=== PATIENT | male | born 1975 ===

== ENCOUNTER 2021-04-20 01:46 | Emergency (ER) | payer MEDICAID, SELFPAY ==
--- NOTE | 2021-04-20 | ECG_ITS ---
Test Reason : DIZZY CHEST PRESSURE Blood Pressure : / mmHG Vent. Rate : 083 BPM Atrial Rate : 083 BPM P-R Int : 130 ms QRS Dur : 084 ms QT Int : 374 ms P-R-T Axes : 065 048 022 degrees QTc Int : 439 ms Normal sinus rhythm Normal ECG When compared to the previous EKG of No significant changes seen Referred By: Generic ED Physician Electronically Signed By:MANUEL PUGH MD
[2021-04-20 01:52] VITALS: BP 149/91; PULSE 86; RESP 18; TEMP 36.8; O2SAT 100; BMI 24.3
[2021-04-20 02:12] LABS: Glucose, Whole Blood 177 mg/dL (60-115)
[2021-04-20 02:41] LABS: MANUAL DIFF FLAG NO
[2021-04-20 02:42] LABS: Basophils Percent Auto 0.5 % (0-2); Eosinophils Absolute Auto 0.2 X10*3/uL (0.0-0.4); Hematocrit 39.9 % (42-52); Hemoglobin 13.2 g/dl (14.0-18.0); Imm Gran Abs Auto 0.02 X10*3/uL (0.00-0.03); Imm Gran Pct Auto 0.3 % (0.0-0.4); Lymphocytes Absolute Auto 1.9 X10*3/uL (1.2-4.9); Lymphocytes Percent Auto 25.7 % (20-40); Mean Corpuscular HGB Conc 33.1 g/dl (31.0-36.0); Mean Corpuscular Hemoglobin 29.6 pg (27.0-33.0); Mean Corpuscular Volume 89.5 fL (80-98); Mean Platelet Volume 11.2 fL (9.4-12.4); Monocytes Absolute Auto 0.7 X10*3/uL (0.1-1.2); Monocytes Percent Auto 8.8 % (2-11); Neutrophils Absolute Auto 4.6 X10*3/uL (2.0-8.3); Neutrophils Percent Auto 62.7 % (45-73); Platelet Count 208 X10*3/uL (160-400); Red Blood Count 4.46 X10*6/uL (4.60-5.80); Red Cell Distribution Width 13.2 % (11.0-16.0); White Blood Count 7.4 X10*3/uL (4.8-10.8)
[2021-04-20 02:45] LABS: Glucose Urine UA NEG (NEG); Leukocyte Esterase Urine NEG (NEG); Nitrite Urine NEG (NEG); Specific Gravity - Urine 1.025 (1.005-1.025); Urine Blood TRACE (NEG); Urine Ketones NEG (NEG); Urine Protein 2+ MG/DL (NEG-TRACE)
[2021-04-20 02:46] LABS: Appearance Urine CLEAR; Color Urine YELLOW
[2021-04-20 02:51] LABS: Mucus Urine 1+ /LPF; Squamous Epithelial Cell Urine 2+ /LPF; WBC Urine 0-2 /HPF (0-4)
[2021-04-20 03:09] LABS: Alanine Aminotransferase 16 U/L (0-40); Albumin Level 4.6 g/dL (3.5-5.0); Alkaline Phosphatase 90 U/L (39-117); Anion Gap 15 (12-20); Aspartate Amino Transferase 17 U/L (5-37); Bilirubin Total 0.4 mg/dL (0.0-1.0); Blood Urea Nitrogen 19 mg/dL (9-16); Calcium 9.5 mg/dL (8.4-10.2); Carbon Dioxide 26 mmol/L (22-29); Chloride 106 mmol/L (96-108); Creatinine Clr Calc Pharmacy 59.9; Estimated Glomerular Filt Rate 47; Glucose Random 154 mg/dL (60-115); Potassium 4.3 mmol/L (3.3-5.1); Sodium 143 mmol/L (135-145); Total Protein 7.6 g/dL (6.5-8.0)
== END 2021-04-20 04:44 | disposition left against medical advice (07) ==
PROVIDERS: Emergency Provider Emergency Medicine; PCP Internal Medicine Geriatric Medicine
DX: R42 Dizziness and giddiness (principal); E11.9 Type 2 diabetes mellitus without complications
CPT/HCPCS: 36415; 80053; 81001; 82947; 84484; 85025; 93005; 99283

== ENCOUNTER 2021-12-11 08:57 | Outpatient (REF) | payer MEDICAID, SELFPAY ==
--- NOTE | ~2021-12-11 | XR_ITS ---
EXAMINATION: PRE-MRI SCREENING CLINICAL INFORMATION: PRE-MRI SCREENING COMPARISON: None TECHNIQUE: AP view of the pelvis FINDINGS: No foreign body is seen. Bones of the pelvis are normal. There is mild arthritis at the hip joints with small osteophytes. Soft tissues are unremarkable. XR/XR pre mri screening IMPRESSION: No foreign body seen.
--- NOTE | ~2021-12-11 | MR_ITS ---
EXAMINATION: MRI FOOT WITHOUT AND WITH CONTRAST, RIGHT CLINICAL INFORMATION: Nonhealing wound at the 5th metatarsal. Pain. COMPARISON: None. TECHNIQUE: Multisequence MR imaging of the right foot was obtained before and after the IV administration of 80 mL Gadavist contrast on a high-field strength scanner. FINDINGS: BONE AND ARTICULAR CARTILAGE: There is prominent metallic artifact related to postsurgical change in the region of the cuboid and which is not well visualized. Findings could indicate prior resection or hardware. Correlation with plain radiographs could help further evaluate. Irregularity of the anterior calcaneal process with mild marrow edema which could represent the postsurgical result. Correlation with surgical history is recommended. No additional evidence of acute osseous injury. No postcontrast marrow enhancement. Mild osteophyte arthritis at the talonavicular, posterior subtalar, and tarsometatarsal joints. No concerning lytic or blastic osseous lesion. ACHILLES TENDON: Unremarkable. OTHER TENDONS: Intact. LIGAMENTS: The anterior and posterior talofibular ligaments appear attenuated which could represent remote sprain/partial tears. JOINT FLUID AND SOFT TISSUES: Soft tissue ulceration laterally with associated postsurgical change in the underlying osseous structures. There is no associated soft tissue mass or fluid collection/abscess formation. There is no significant soft tissue postcontrast enhancement. No significant joint effusion. PLANTAR FASCIA: Normal. SINUS TARSI AND TARSAL TUNNEL: Normal. MR/MR foot RT wo/w con IMPRESSION: 1. Soft tissue ulceration/postsurgical change at the lateral aspect of the midfoot with underlying metallic artifact in the region of the cuboid. Metallic artifact largely obscures the immediately adjacent osseous and soft tissue structures. No soft tissue mass or abscess formation. No adjacent marrow enhancement to suggest acute osteomyelitis. 2. Irregularity of the anterior process of the calcaneus without significant marrow enhancement or evidence of acute osseous myelitis. Findings likely represent postsurgical in correlation with surgical history is recommended. 3. 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 No concerning lytic or blastic osseous lesion.
[2021-12-11 09:25] LABS: MANUAL DIFF FLAG NO
[2021-12-11 09:27] LABS: Basophils Absolute Auto 0.1 X10*3/uL (0.0-0.2); Basophils Percent Auto 0.9 % (0-2); Eosinophils Absolute Auto 0.5 X10*3/uL (0.0-0.4); Eosinophils Percent Auto 7.1 % (0-4); Hematocrit 37.4 % (42.0-52.0); Imm Gran Abs Auto 0.02 X10*3/uL (0.00-0.03); Imm Gran Pct Auto 0.3 % (0.0-0.4); Lymphocytes Absolute Auto 2.1 X10*3/uL (1.2-4.9); Lymphocytes Percent Auto 29.9 % (20-40); Mean Corpuscular HGB Conc 32.1 g/dl (31.0-36.0); Mean Corpuscular Hemoglobin 29.3 pg (27.0-33.0); Mean Corpuscular Volume 91.2 fL (80.0-98.0); Mean Platelet Volume 10.6 fL (9.4-12.4); Monocytes Absolute Auto 0.5 X10*3/uL (0.1-1.2); Monocytes Percent Auto 6.7 % (2-11); Neutrophils Absolute Auto 3.9 x10*3/uL (2.0-8.3); Neutrophils Percent Auto 55.1 % (45-73); Platelet Count 219 X10*3/uL (160-400); Red Cell Distribution Width 13.2 % (11.0-16.0)
[2021-12-11 09:44] LABS: Alanine Aminotransferase 27 U/L (0-40); Albumin Level 4.1 g/dL (3.5-5.0); Alkaline Phosphatase 90 U/L (39-117); Anion Gap 12 (12-20); Aspartate Amino Transferase 21 U/L (5-37); Bilirubin Total 0.3 mg/dL (0.0-1.0); Blood Urea Nitrogen 17 mg/dL (9-16); C Reactive Protein 0.38 mg/dL (< or = 0.50); Calcium 9.5 mg/dL (8.4-10.2); Carbon Dioxide 28 mmol/L (22-29); Chloride 107 mmol/L (96-108); Estimated Glomerular Filt Rate 56; Glucose Random 163 mg/dL (60-115); Potassium 5.6 mmol/L (3.3-5.1); Sodium 141 mmol/L (135-145); Total Protein 7.1 g/dL (6.5-8.0)
== END 2021-12-11 08:58 | disposition home or self-care (01) ==
LOC: HO.MRI 08:57
PROVIDERS: Visit Provider Internal Medicine Geriatric Medicine
DX: M79.671 Pain in right foot (principal); Z87.39 Personal history of other diseases of the musculoskeletal system and connective tissue
CPT/HCPCS: 36415; 73720; 80053; 85025; 86140; A9585

== ENCOUNTER 2022-12-28 05:24 | Emergency (ER) | payer MEDICAID, SELFPAY ==
--- NOTE | ~2022-12-28 | XR_ITS ---
EXAMINATION: XR CHEST CLINICAL INFORMATION: Anxiety COMPARISON: 11/24/2015 TECHNIQUE: Frontal view of the chest was obtained. FINDINGS: Cardiac silhouette is within normal limits. No focal consolidation, pleural effusion, or pneumothorax. Sclerosis and small marginal osseous excrescences noted along the lateral margin of the right scapula. Multilevel degenerative changes of the thoracic spine. No acute osseous abnormality. XR/XR chest 1V IMPRESSION: No acute cardiopulmonary process. Other findings as above.
[2022-12-28 05:33] VITALS: BP 141/68; PULSE 84; RESP 18; TEMP 36.7; O2SAT 100; BMI 24.3
[2022-12-28 05:50] LABS: Glucose, Whole Blood 192 mg/dL (60-115)
--- OUTSIDE RECORDS SUMMARY | 2022-12-28 05:51 | XMS_ITS | Continuity of Care Document ---
Author Name Unknown Organization [facility] ter Address [address] [place] [id number]- Care Team Providers Care Agile Scrum Master Name Role Phone Name Noe FLORES Primary Care Physician [phone] [id number] Date(s): 09/22/20 - 09/23/[address] [address]- Encounter Diagnosis Multiple open wounds of foot(Discharge Diagnosis) - 09/23/20 Discharge Disposition: A-Transfer VNA/Home Health Attending Physician: Trisha Flores MD Admitting Physician: Trisha Flores MD Referring Physician: Trisha Flores MD Allergies, Adverse Reactions, Alerts Substance Reaction Severity Status NKA Active Immunizations Not Given Vaccine Date Status Refusal Reason pneumococcal 23-valent vaccine 07/25/20 Not Given Patient Refuses influenza virus vaccine, inactivated 07/25/20 Not Given Patient Refuses Medications aspirin 325 mg oral delayed release tablet 325 mg, 1, tablet, By Mouth, Daily, # 30 tablet, Refills 0, Tot. Refills 0, Maintenance, 09/03/20 10:01:00 EST, Route to Pharmacy Electronically, [facility], Partial fill upon patient request if the prescription is for a schedule II opio... Start Date: 09/03/20 Stop Date: 10/03/20 Status: Ordered Docusate Sodium Capsule 100 mg, 1, capsule, By Mouth, 2 times a day, Refills 0, Maintenance, 07/27/20 11:08:00 EDT Start Date: 07/27/20 Status: Ordered Dressing Supplies See Instructions, # 10 each, Refills 2, Tot. Refills 2, Maintenance, ACTICOAT flex 7, 09/23/20 10:40:00 EST, Supply Start Date: 09/23/20 Status: Ordered ferrous sulfate 325 mg oral enteric coated tablet 325 mg, By Mouth, Daily, # 30 tablet, Refills 0, Tot. Refills 0, Maintenance, 09/03/20 9:56:00 EST,Route to Pharmacy Electronically, [facility], Partial fill upon patient request if the prescription is for a schedule II opioid drug., 18... Start Date: 09/03/20 Stop Date: 10/03/20 Status: Ordered gabapentin 100 mg oral capsule 300 mg, 3, capsule, By Mouth, 3 times a day, # 63 capsule, Refills 0, Tot. Refills 0, Maintenance, 09/03/20 9:55:00 EST, Route to Pharmacy Electronically, [facility], Partial fill upon patient request if the prescription is for a schedul... Start Date: 09/03/20 Stop Date: 09/10/20 Status: Ordered gabapentin 300 mg oral capsule 300 mg, Capsule, By Mouth, 09/23/20 9:00:00 EST Start Date: 09/23/20 Stop Date: 09/23/20 Status: Completed Gauze Pad (4 X 4) See Instructions, # 25 each, Refills 2, Tot. Refills 2, Maintenance, Apply over acticoat flex 7, 09/23/20 10:44:00 EST, Supply Start Date: 09/23/20 Status: Ordered Gauze Roll (4 ) See Instructions, # 10 each, Refills 2, Tot. Refills 2, Maintenance, 4 in kerlix rolls, 09/23/20 10:44:00 EST, Supply Start Date: 09/23/20 Status: Ordered Metformin By Mouth, family unsure of dose, 0 Refills, Maintenance, 07/24/20 19:57:00 EDT Start Date: 07/24/20 Status: Ordered MOM Liquid 30 mL, By Mouth, Daily, PRN Constipation, 0 Refills, Maintenance, 07/27/20 11:08:00 EDT, Suspension Start Date: 07/27/20 Status: Ordered oxyCODONE 5 mg oral tablet 5 mg, Tablet, By Mouth, Every 4 hours, PRN for Pain , Moderate, Routine, 09/22/20 18:01:00 EST Start Date: 09/22/20 Stop Date: 09/23/20 Status: Discontinued oxyCODONE 5 mg oral tablet 5 mg, 1, tablet, By Mouth, Every 4 hours, PRN, Refills 0, Tot. Refills 0, Maintenance, Pain , Moderate, 09/23/20 11:07:00 EST, Partial fill upon patient request if the prescription is for a schedule II opioid drug. Start Date: 09/23/20 Status: Ordered Primaxin IV 500 mg-500 mg injectable powder for injection = 1,000 mg, IV Infusion, Every 8 hours, for 8 week(s), # 24 each, 0 Refills, Acute 10/29/20 10:03:00 EST, 09/03/20 10:03:00 EST, Partial fill upon patient request if the prescription is for a schedule II opioid drug. Start Date: 09/03/20 Stop Date: 10/29/20 Status: Ordered Senna 8.6 mg oral tablet 8.6 mg, 1, tablet, By Mouth, Daily, Refills 0, Maintenance, 07/27/20 11:08:00 EDT, Tablet Start Date: 07/27/20 Status: Ordered Trulicity Pen Subcutaneous Infusion, family unsure of dose, will bring from home, 0 Refills, Maintenance, 07/24/20 19:56:00 EDT Start Date: 07/24/20 Status: Ordered Tylenol 325 mg oral tablet 975 mg, Tablet, By Mouth, 09/23/20 10:00:00 EST Start Date: 09/23/20 Stop Date: 09/23/20 Status: Completed Tylenol 325 mg oral tablet 975 mg, 3, tablet, By Mouth, Every 6 hours, Refills 0, Maintenance, 09/23/20 11:07:00 EST, Partial fill upon patient request if the prescription is for a schedule II opioid drug. Start Date: 09/23/20 Status: Ordered Problem List Diagnosis Diagnosis Type Effective Dates Health Status Cl inical Service Informant Multiple open wounds of foot 1 Discharge Diagnosis 09/23/20 Non-Specified 11:24 EST - Keri Beard Right lateral ankle and foot wound. Foot wounds a sequela of right hindfoot and mid foot and forefoot open fracture dislocations. Vital Signs Most recent to oldest [Reference Range]: 1 2 3 4 Height 177.8 cm (09/23/20 11:18 AM) 177.8 cm (09/23/20 8:22 AM) 177.8 cm (09/23/20 3:36 AM) Weight 71.3 kg (09/22/20 8:43 PM) 71.3 kg (09/22/20 2:30 PM) Oxygen Saturation [94-100 %] 99 % (09/23/20 11:18 AM) 96 % (09/23/20:22 AM) 98 % (09/23/20 3:36 AM) Pulse Rate [55-90 bpm] 82 bpm (09/23/20 11:18 AM) 80 bpm (09/23/20 8:22 AM) 70 bpm (09/23/20 3:36 AM) Body Mass Index [18.5-24.99] 22.55 (09/22/20 8:43 PM) 22.55 (09/22/20 2:30 PM) Blood Pressure [90-138/55-84 mm Hg] 120/75mm Hg (09/23/20 11:18 AM) 131/77mm Hg (09/23/20 8:22 AM) 122/75mm Hg (09/23/20 3:36 AM) Respiratory Rate [16-30 br/min] 16 br/min (09/23/20 11:18 AM) 18 br/min (09/23/20 10:14 AM) 18 br/min (09/23/20 10:14 AM) 18 br/min (09/23/20 10:14 AM) Temperature [96.8-100.4 DegF] 98.3 DegF (09/23/20 11:18 AM) 98.4 DegF (09/23/20 8:22 AM) 97.9 DegF (09/23/20 3:36 AM) Liters per Minute 2 L/min (09/22/20 5:45 PM) 2 L/min (09/22/20 5:30 PM) 6 L/min (09/22/20 5:15 PM) Mode of Delivery (Oxygen) Room air (09/23/20 11:18 AM) Room air (09/23/20 8:22 AM) Room air (09/23/20 3:36 AM) Blood pressure sites Arm, right (09/23/20 11:18 AM) Arm, right (12/22/20 8:22 AM) Arm, right (09/23/20 3:36 AM) Temperature Route Oral (09/23/20 11:18 AM) Oral (09/23/20 8:22 AM) Oral (09/23/20 3:36 AM) Dry Weight 71.3 kg (09/22/20 8:43 PM) 71.3 kg (09/22/20 2:30 PM) Weight Obtained Via Standing scale (09/22/20 2:30 PM)
--- OUTSIDE RECORDS SUMMARY | 2022-12-28 05:51 | XMS_ITS | Continuity of Care Document ---
Author Name Unknown Organization [facility] Address [address] [place] [id number]- Care Team Providers Care Key Maker Name Role Phone Name Noe FLORES Primary Care Physician En[place] [facility] [place] Date(s): 10/02/20 - 11/01/20 [facility] [address] [place] [id number] Attending Physician: Ashley Purvis Admitting Physician: AdmAshley williamson Referring Physician: AdmtrAshley Allergies, Adverse Reactions, Alerts Substance Reaction Severity [...] 09/03/20 10:01:00 EST, Route to Pharmacy Electronically, [facility], Partial fill upon patient request if the prescription is for a schedule II opio... Start Date: 09/03/20 Stop Date: 10/03/20 Status: Ordered Docusate Sodium Capsule 100 mg, 1, capsule, By Mouth, 2 times a day, Refills 0, Maintenance, 07/27/20 11:08:00 EDT Start Date: 07/27/20 Status: Ordered doxycycline hyclate 100 mg oral tablet 1 tablet = 100 mg, By Mouth, 2 times a day, for 6 week(s), # 84 tablet, 0 Refills, Acute 12/08/20 9:39:00 EST, 10/27/20 9:39:00 EST, [id number], Partial fill upon patient request if the prescription is for a schedule II opioid drug.,... Start Date: 10/27/20 Stop Date: 12/08/20 Status: Ordered ferrous sulfate 325 mg oral enteric coated tablet 325 mg, By Mouth, Daily, # 30 tablet, Refills 0, Tot. Refills 0, Maintenance, 09/03/20 9:56:00 EST,Route to Pharmacy Electronically, [facility], Partial fill upon patient request if the prescription is for a schedule II opioid drug., 18... Start Date: 09/03/20 Stop Date: 10/03/20 Status: Ordered gabapentin 100 mg oral capsule 300 mg, 3, capsule, By Mouth, 3 times a day, # 63 capsule, Refills 0, Tot. Refills 0, Maintenance, 09/03/20 9:55:00 EST, Route to Pharmacy Electronically, [facility], Partial fill upon patient request if the prescription is for a schedul... Start Date: 09/03/20 Stop Date: 09/10/20 Status: Ordered Metformin By Mouth, family unsure of dose, 0 Refills, Maintenance, 07/24/20 19:57:00 EDT Start Date: 07/24/20 Status: Ordered MOM Liquid 30 mL, By Mouth, Daily, PRN Constipation, 0 Refills, Maintenance, 07/27/20 11:08:00 EDT, Suspension Start Date: 07/27/20 Status: Ordered oxyCODONE 5 mg oral tablet 5 mg, 1, tablet, By Mouth, Every 4 hours, PRN, # 40 tablet, Refills 0, Tot. Refills 0, Acute 11/04/20 12:05:00 EST, Pain , Moderate, 10/28/20 12:04:00 EST, Route to Pharmacy Electronically, [facility], Partial fill upon patient request i... Start Date: 10/28/20 Stop Date: 11/04/20 Status: Ordered Senna 8.6 mg oral tablet 8.6 mg, 1, tablet, By Mouth, Daily, for 10 days, # 10 tablet, Refills 0, Tot. Refills 0, Acute, 11/07/20 12:04:00 EST, 10/28/20 12:04:00 EST, [facility], Partial fill upon patient request if the p... Start Date: 10/28/20 Stop Date: 11/07/20 Status: Ordered Trulicity Pen Subcutaneous Infusion, family unsure of dose, will bring from home, 0 Refills, Maintenance, 07/24/20 19:56:00 EDT Start Date: 07/24/20 Status: Ordered Tylenol 325 mg oral tablet 975 mg, 3, tablet, By Mouth, Every 6 hours, # 50 tablet, Refills 0, Tot. Refills 0, Acute 11/04/20 12:04:00 EST, 10/28/20 12:04:00 EST, Route to Pharmacy Electronically, [facility], Partial fill upon patient request if the prescription i... Start Date: 10/28/20 Stop Date: 11/04/20 Status: Ordered Problem List Condition Effective Dates Status Health Status Inform ant Wound of right ankle(Confirmed) Active
--- OUTSIDE RECORDS SUMMARY | 2022-12-28 05:51 | XMS_ITS | Continuity of Care Document ---
Author Name Unknown Organization [facility] Address [address] [place] [id number]- Care Team Providers Care Technical Aid Name Role Phone Name Noe FLORES Primary Care Physician [phone] [place] [facility] [place] Date(s): 08/14/20 - 09/13/[address] [address] Allergies, Adverse Reactions, Alerts Substance Reaction Severity [...] 09/03/20 10:01:00 EST, Route to Pharmacy Electronically, [facility], Partial fill upon patient request if the prescription is for a schedule II opio... Start Date: 09/03/20 Stop Date: 10/03/20 Status: Ordered bisacodyl 10 mg rectal suppository 1 supp = 10 mg, Rectally, Daily, PRN Constipation, 0 Refills, Maintenance, 07/27/20 11:08:00 EDT, Suppository Start Date: 07/27/20 Status: Ordered Docusate Sodium Capsule 100 mg, 1, capsule, By Mouth, 2 times a day, Refills 0, Maintenance, 07/27/20 11:08:00 EDT Start Date: 07/27/20 Status: Ordered Duoneb Inhalation Solution 1, vials, Neb, 4 times a day, Refills 0, Maintenance, 07/27/20 11:08:00 EDT, Inhalation Solution Start Date: 07/27/20 Status: Ordered ferrous sulfate 325 mg oral enteric coated tablet 325 mg, By Mouth, Daily, # 30 tablet, Refills 0, Tot. Refills 0, Maintenance, 09/03/20 9:56:00 EST,Route to Pharmacy Electronically, [facility], Partial fill upon patient request if the prescription is for a schedule II opioid drug., 18... Start Date: 09/03/20 Stop Date: 10/03/20 Status: Ordered gabapentin 100 mg oral capsule 300 mg, 3, capsule, By Mouth, 3 times a day, # 63 capsule, Refills 0, Tot. Refills 0, Maintenance, 09/03/20 9:55:00 EST, Route to Pharmacy Electronically, [facility], Partial fill upon patient request if the prescription is for a schedul... Start Date: 09/03/20 Stop Date: 09/10/20 Status: Ordered Gauze Roll (4 ) See Instructions, # 25 each, Refills 2, Tot. Refills 2, Maintenance, Kerlix rolls for wet to dry dressing changes daily to medial and lateral foot wounds, 09/03/20 10:19:00 EST, Supply Start Date: 09/03/20 Status: Ordered Metformin By Mouth, family unsure of dose, 0 Refills, Maintenance, 07/24/20 19:57:00 EDT Start Date: 07/24/20 Status: Ordered MOM Liquid 30 mL, By Mouth, Daily, PRN Constipation, 0 Refills, Maintenance, 07/27/20 11:08:00 EDT, Suspension Start Date: 07/27/20 Status: Ordered Primaxin IV 500 mg-500 mg [...] EDT, Tablet Start Date: 07/27/20 Status: Ordered sterile water irrigation solution See Instructions, 500mL bottles for wet to dry dressing changes daily, # 5 each, 2 Refills, Maintenance, 09/03/20 10:21:00 EST, Partial fill upon patient request if the prescription is for a scheduleII opioid drug. Start Date: 09/03/20 Status: Ordered Trulicity Pen Subcutaneous Infusion, family unsure of dose, will bring from home, 0 Refills, Maintenance, 07/24/20 19:56:00 EDT Start Date: 07/24/20 Status: Ordered
--- OUTSIDE RECORDS SUMMARY | 2022-12-28 05:51 | XMS_ITS | Continuity of Care Document ---
Author Name Unknown Organization [facility] ter Address [address] [place] [address]- Care Team Providers Care Coastal Tug Mate Name Role Phone Name Noe FLORES Primary Care Physician Encounter [facility] [place] Date(s): 10/27/20 - 10/28/[address] [address]- Encounter Diagnosis Wound of right ankle(Discharge Diagnosis) - 10/28/20 Open fracture dislocation of right foot(Discharge Diagnosis) - 10/28/20 Discharge Disposition: A-D/C Home Attending Physician: Trisha Flores MD Admitting Physician: [...] 09/03/20 10:01:00 EST, Route to Pharmacy Electronically, [facility], Partial fill upon patient [...] Acute 12/08/20 9:39:00 EST, 10/27/20 9:39:00 EST, [id number], Partial fill upon patient request if the prescription is for a schedule II opioid drug.,... Start Date: 10/27/20 Stop Date: 12/08/20 Status: Ordered ferrous sulfate 325 mg oral enteric coated tablet 325 mg, By Mouth, Daily, # 30 tablet, Refills 0, Tot. Refills 0, Maintenance, 09/03/20 9:56:00 EST,Route to Pharmacy Electronically, [facility], Partial fill upon patient request if the prescription is for a schedule II opioid drug., 18... Start Date: 09/03/20 Stop Date: 10/03/20 Status: Ordered gabapentin 100 mg oral capsule 300 mg, 3, capsule, By Mouth, 3 times a day, # 63 capsule, Refills 0, Tot. Refills 0, Maintenance, 09/03/20 9:55:00 EST, Route to Pharmacy Electronically, [facility], Partial fill upon patient request if the prescription is for a schedul... Start Date: 09/03/20 Stop Date: 09/10/20 Status: Ordered gabapentin 300 mg oral capsule 300 mg, Capsule, By Mouth, 10/28/20 9:00:00 EST Start Date: 10/28/20 Stop Date: 10/28/20 Status: Completed Metformin By Mouth, family unsure of dose, [...] 10/28/20 12:04:00 EST, Route to Pharmacy Electronically, [facility], Partial fill upon patient request i... Start Date: 10/28/20 Stop Date: 11/04/20 Status: Ordered Senna 8.6 mg oral tablet 8.6 mg, 1, tablet, By Mouth, Daily, for 10 days, # 10 tablet, Refills 0, Tot. Refills 0, Acute, 11/07/20 12:04:00 EST, 10/28/20 12:04:00 EST, Route to Pharmacy Electronically, [facility] Tablet, Partial fill upon patient request [...] 10/28/20 12:04:00 EST, Route to Pharmacy Electronically, [facility], Partial fill upon patient request if the prescription i... Start Date: 10/28/20 Stop Date: 11/04/20 Status: Ordered Tylenol 325 mg oral tablet 975 mg, Tablet, By Mouth, 10/28/20 8:00:00 EST Start Date: 10/28/20 Stop Date: 10/28/20 Status: Completed Problem List Condition Effective Dates Status Health Status Inform ant Wound of right ankle(Confirmed) Active Diagnosis Diagnosis Type Effective Dates Health Status Clinical Service Informant Wound of right ankle 1 Discharge Diagnosis 10/28/20 Non-Specified Open fracture dislocation of right foot 2 Discharge Diagnosis 10/28/20 Non-Specified 08/28/2021 12:17 Keri Aleman Right ankle and foot wound, sequela of trauma. 12:17 Keri Aleman Right open ankle fracture dislocations, midfoot fracture dislocations, routine healing status post spanning external fixator placement. Vital Signs Most recent to oldest [Reference Range]: 1 2 3 Height 177.8 cm (10/28/20 11:44 AM) 177.8 cm (10/28/20 8:22 AM) 177.8 cm (10/27/20 1:07 PM) Weight 78.3 kg (10/27/20 1:07 PM) Oxygen Saturation [94-100 %] 99 % (10/28/20 11:44 AM) 100 % (10/28/20 8:22 AM) 100 % (10/28/20 3:00 AM) Pulse Rate [55-90 bpm] 86 bpm (10/28/20 11:44 AM) 97 bpm *H* (10/28/20 8:22 AM) 77 bpm (10/28/20 3:00 AM) Body Mass Index [18.5-24.99] 24.77 (10/27/20 1:07 PM) Blood Pressure [90-138/55-84 mm Hg] 130/84mm Hg (10/28/20 11:44 AM) 127/79mm Hg (10/28/20 8:22 AM) 139/84mm Hg *H* (10/28/20 3:00 AM) Respiratory Rate [16-30 br/min] 18 br/min (10/28/20 11:44 AM) 18 br/min (10/28/20 9:32 AM) 18 br/min (10/28/20 9:32 AM) Temperature [96.8-100.4 DegF] 98.3 DegF (10/28/20 11:44 AM) 98.3 DegF (10/28/20 8:22 AM) 97.8 DegF (10/28/20 3:00 AM) Liters per Minute 6 L/min (10/27/20 11:45 AM) 6 L/min (10/27/20 11:30 AM) Mode of Delivery (Oxygen) Room air (10/28/20 3:00 AM) Room air (10/27/20 11:00 PM) Room air (10/27/20 7:00 PM) Blood pressure sites Arm, right (10/28/20 3:00 AM) Arm, left (10/27/20 7:00 PM) Arm, right (10/27/20 1:07 PM) Temperature Route Oral (10/28/20 11:44 AM) Oral (10/28/20 8:22 AM) Oral (10/28/20 3:00 AM) Dry Weight 78.3 kg (10/27/20 1:07 PM) 71.3 kg (10/27/20 8:39 AM) Weight Obtained Via Standing scale (10/27/20 1:07 PM) Dry Weight Obtained Via Standing scale (10/27/20 1:07 PM) Standing scale (10/27/20 8:39 AM)
--- OUTSIDE RECORDS SUMMARY | 2022-12-28 05:51 | XMS_ITS | Continuity of Care Document ---
Author Name Unknown Organization [facility] Address [address] [place] [id number]- Care Team Providers Care Commercial Tire Service Technician Name Role Phone Name Noe FLORES Primary Care Physician Encounter 07/29/20 - 11/25/20 [facility] [address] [place] [id number]- Discharge Disposition: [facility] Allergies, Adverse Reactions, Alerts Substance Reaction Severity [...] Acute 12/08/20 9:39:00 EST, 10/27/20 9:39:00 EST, [id number], Partial fill upon patient request if the prescription is for a schedule II opioid drug.,... Start Date: 10/27/20 Stop Date: 3/8/21 Status: Ordered ferrous sulfate 325 mg oral [...] EDT, Suspension Start Date: 07/27/20 Status: Ordered Trulicity Pen Subcutaneous Infusion, family unsure of dose, will bring from home, 0 Refills, Maintenance, 07/24/20 19:56:00 EDT Start Date: 07/24/20 Status: Ordered Problem List Condition Effective Dates Status Health Status Inform ant Wound of right ankle(Confirmed) Active
--- OUTSIDE RECORDS SUMMARY | 2022-12-28 05:51 | XMS_ITS | Continuity of Care Document ---
Author Name Unknown Organization [facility] Address [address] [place] [id number]- Care Team Providers Care Claim Attorney Name Role Phone Not on Staff, PCP Primary Care Physician Unavail able [place] [facility] [place] 07/27/[address] [address]- [facility] Encounter Diagnosis Open right calcaneal fracture(Final) - 07/24/20 Scapular fracture(Final) - 07/24/20 Rib fracture(Final) - 07/24/20 Discharge Disposition: A-Transfer VNA/Home Health Attending Physician: Trisha Flores MD Admitting Physician: Virgil Thomas MD Referring Physician: Not on Staff, Referring MD Allergies, Adverse Reactions, Alerts Substance Reaction Severity Status NKA Active Immunizations Not Given Vaccine Date Status Refusal Reason influenza virus vaccine, inactivated 07/25/20 Not Given Patient Refuses pneumococcal 23-valent vaccine 07/25/20 Not Given Patient Refuses Medications acetaminophen 325 mg oral tablet 650 mg, By Mouth, Every 4 hours, Refills 0, Maintenance, 07/27/20 11:07:00 EDT Start Date: 07/27/20 Status: Ordered aspirin 81 mg oral delayed release tablet 81 mg, 1, tablet, By Mouth, Daily, # 30 tablet, Refills 0, Maintenance, 07/24/20 19:57:00 EDT Start Date: 07/24/20 Status: Ordered bisacodyl 10 mg rectal suppository [...] Inhalation Solution Start Date: 07/27/20 Status: Ordered enoxaparin 40 mg/0.4 mL injectable solution 0.4 mL = 40 mg, Subcutaneous Injection, Daily, # 21 each, 0 Refills, Acute 08/17/20 11:09:00 EST, 07/27/20 11:09:00 EDT, Injection, [facility], 177, cm, 07/27/20 11:09:00 EDT, Height, 77, kg, 07/24/20 19:38:00 EDT, Dry Weight Start Date: 07/27/20 Stop Date: 08/17/20 Status: Ordered gabapentin 100 mg oral capsule 100 mg, 1, capsule, By Mouth, 3 times a day, Refills 0, Maintenance, 07/27/20 11:08:00 EDT Start Date: 07/27/20 Status: Ordered gabapentin 100 mg oral capsule 100 mg, 1, capsule, By Mouth, 3 times a day, # 90 capsule, Refills 0, Tot. Refills 0, Maintenance, 07/27/20 11:11:00 EDT, Route to Pharmacy Electronically, [facility], 177, cm, 07/27/2011:09:00 EDT, Height, 77, kg, 07/24/20 19:38:00 EDT... Start Date: 07/27/20 Stop Date: 08/28/20 Status: Ordered Insulin Lispro 2-8 units, Subcutaneous Injection, 3 times a day before meals, 0 Refills, Maintenance, 07/27/20 11:08:00 EDT, Injection Start Date: 07/27/20 Status: Ordered Metformin By Mouth, family unsure of dose, 0 Refills, Maintenance, 07/24/20 19:57:00 EDT Start Date: 07/24/20 Status: Ordered MOM Liquid 30 mL, By Mouth, Daily, PRN Constipation, 0 Refills, Maintenance, 07/27/20 11:08:00 EDT, Suspension Start Date: 07/27/20 Status: Ordered oxyCODONE 5 mg oral tablet 10 mg, 2, tablet, By Mouth, Every 4 hours, PRN, Refills 0, Tot. Refills 0, Maintenance, Pain , Severe, 07/27/20 11:08:00 EDT, Partial fill upon patient request Start Date: 07/27/20 Status: Ordered oxyCODONE 5 mg oral tablet 10 mg, 2, tablet, By Mouth, Every 4 hours, PRN, # 42 tablet, Refills 0, Tot. Refills 0, Acute 08/04/20 11:12:00 EST, Pain , Severe, 07/27/20 11:12:00 EDT, Route to Pharmacy Electronically, [facility], Partial fill upon patient request, 1... Start Date: 07/27/20 Stop Date: 08/04/20 Status: Ordered Senna 8.6 mg oral tablet 8.6 mg, 1, tablet, By Mouth, Daily, Refills 0, Maintenance, 07/27/20 11:08:00 EDT, Tablet Start Date: 07/27/20 Status: Ordered Trulicity Pen Subcutaneous Infusion, family unsure of dose, will bring from home, 0 Refills, Maintenance, 07/24/20 19:56:00 EDT Start Date: 07/24/20 Status: Ordered Results Radiology Reports * Exam Date Time Procedure Performing Provider Status 07/24/20 3:29 PM C-Arm > 1 Hour Citlali Staley; (Verified) Notes: (C-Arm > 1 Hour) Reason For Exam: fracture RESULT: C-Arm > 1 Hour Foot Min 3 Views Right, C-Arm > 1 Hour, 3 views Reason: fracture; Special Instructions: 1.65mGy 54.8secft [id number] COMPARISON: None. FINDINGS: 6 fluoroscopic spot images submitted intraoperatively during fixation of midfoot, hindfoot and forefoot fractures. IMPRESSION: See above WSN: [id number] Ordering Physician: Trisha Flores Dictated By: Jovany Collins MD Dictated Date/Time: 07/24/20 3:42 pm Reviewed By: Jovany Collins MD Signed By: Jovany Collins MD Signed Date/Time: 07/24/20 3:42 pm Transcribed By: ELICEO Transcribed Date/Time: 07/24/20 3:39 pm * Exam Date Time Procedure Performing Provider Status 07/24/20 3:29 PM Foot Min 3 Views Right Leandro Staley; Auth (Verified) Notes: (Foot Min 3 Views Right) Reason For Exam: fracture RESULT: Foot Min 3 Views Right Foot Min 3 Views Right, C-Arm > 1 Hour, 3 views Reason: fracture; Special Instructions: 1.65mGy 54.8secft [id number] COMPARISON: None. FINDINGS: 6 fluoroscopic spot images submitted intraoperatively during fixation of midfoot, hindfoot and forefoot fractures. IMPRESSION: See above WSN: [id number] Ordering Physician: Trisha Flores Dictated By: Jovany Collins MD Dictated Date/Time: 07/24/20 3:42 pm Reviewed By: Jovany Collins MD Signed By: Jovany Collins MD Signed Date/Time: 07/24/20 3:42 pm Transcribed By: ELICEO Transcribed Date/Time: 07/24/20 3:39 pm * Exam Date Time Procedure Performing Provider Status 07/24/20 8:56 AM Chest 2 Views Frontal and Lat Cathy Graham; Auth (Verified) Notes: (Chest 2 Views Frontal and Lat) Reason For Exam: rib fx;Other: RESULT: Chest 2 Views Frontal and Lat Chest 2 Views Frontal and Lat Reason: Other:; rib fx; Clinical Question(s): Pneumothorax; Order Comment: @0610am Pt is still collared per RN. -KD COMPARISON: July 23. FINDINGS: Comminuted fracture right scapula several CM inferior to bony glenoid, displacement and angulation of fracture fragments seen. ---No pneumothorax seen but no film with breath held in expiration has been obtained. ---Lungs clear, no infiltrates. CP angles sharp. Cardiac silhouette, vascularity, hilar and mediastinal regions unremarkable. IMPRESSION: No pneumothorax seen. WSN: [id number] Ordering Physician: Darrell (Surgery)Enedina Dictated By: Orion [place] MD Dictated Date/Time: 07/24/20 9:04 am Reviewed By: Orion Finney MD Signed By: Orion Fin[facility] MD Signed Date/Time: 07/24/20 9:04 am Transcribed By: ELICEO Transcribed Date/Time: 07/24/20 9:00 am * Exam Date Time Procedure Performing Provider Status 07/24/20 1:13 AM Foot Min 3 Views Right Yajaira Reich (Verified) Notes: (Foot Min 3 Views Right) Reason For Exam: Post-Reduction RESULT: Foot Min 3 Views Right Foot Min 3 Views Right, 3 views Reason: Post-Reduction; Clinical Question(s): Fracture COMPARISON: 07/23/2020 FINDINGS: Fine detail is obscured by overlying cast. Improved alignment of the fifth metatarsal neck fracture. Metatarsal head is displaced medially by approximately 1 cm. There is approximately 0.8 cm of foreshortening. Comminuted calcaneal fracture extends into the sinus tarsi. Small avulsion fracture proximal aspect of the first cuneiform. Additional midfoot fractures are better appreciated with CT Soft tissue gas. IMPRESSION: Forefoot, hindfoot and midfoot fractures are outlined above WSN: [id number] Ordering Physician: Lamin Murillo Dictated By: Jovany Collins MD Dictated Date/Time: 07/24/20 7:50 am Reviewed By: Jovany Collins MD Signed By: Jovany Collins MD Signed Date/Time: 07/24/20 7:50 am Transcribed By: ELICEO Transcribed Date/Time: 07/24/20 7:46 am * Exam Date Time Procedure Performing Provider Status 07/23/20 9:54 PM Ankle 2 Views Right Darren Omalley (Verified) Notes: (Ankle 2 Views Right) Reason For Exam: Trauma RESULT: Ankle 2 Views Right Foot 2 Views Right, Ankle 2 Views Right CLINICAL INDICATION: Reason: Trauma; Clinical Question(s): Fracture COMPARISONS: None TECHNIQUE: AP and crosstable lateral views of the right foot and right ankle were obtained. FINDINGS: Exam limited by positioning. The ankle and foot is held in eversion. No distal tibial or fibular fracture Tibiotalar alignment is intact. There is a displaced fracture extending through the fifth metatarsal head. There is medial displacement of the fifth metatarsal head which remains articulated with the fifth proximal phalanx. There is a nondisplaced fourth metatarsal head fracture. There is complete disruption of the tarsometatarsal joints with overlapping of the cuneiforms and cuboid with the proximal metatarsals on the AP view and oblique view. This indicates significant tarsometatarsal and/or Lisfranc joint injury. There is a displaced fracture extending through the anterior aspect of the calcaneus which disruptsthe anterior subtalar joint facet as well as the articulation of the calcaneocuboid joint. There are punctate densities within the plantar soft tissues of the heel which may represent foreign bodies. IMPRESSION: Study limited by positioning. Disruption of the tarsometatarsal joint spaces and or Lisfranc joint. Difficult to assess for fractures of the cuneiforms and cuboid due to presumed TMT dislocation and fractures. CT may be required to delineate extent of injuries and alignment. There is a comminuted displaced fracture of the calcaneus which disrupts the anterior facet of the subtalar joint as well as the articulation of the calcaneus and cuboid. There is a displaced fracture of the fifth metatarsal head with dorsal medial subluxation of the displaced fifth metatarsal head fracture fragment. There is a nondisplaced fourth metatarsal head fracture. WSN: [id number] Ordering Physician: Stefany Fletcher Dictated By: Kenny Urban MD Dictated Date/Time: 07/23/20 10:05 p Reviewed By: Kenny Urban MD Signed By: Kenny Urban MD Signed Date/Time: 07/23/20 10:05 pm Transcribed By: ELICEO Transcribed Date/Time: 07/23/20 9:58 pm * Exam Date Time Procedure Performing Provider Status 07/23/20 9:50 PM Foot 2 Views Right Wagner Armas (Verified) Notes: (Foot 2 Views Right) Reason For Exam: Trauma RESULT: Foot 2 Views Right Foot 2 Views Right, Ankle 2 Views Right CLINICAL INDICATION: Reason: Trauma; Clinical Question(s): Fracture COMPARISONS: None TECHNIQUE: AP and crosstable lateral views of the right foot and right ankle were obtained. FINDINGS: Exam limited by positioning. The ankle and foot is held in eversion. No distal tibial or fibular fracture Tibiotalar alignment is intact. There is a displaced fracture extending through the fifth metatarsal head. There is medial displacement of the fifth metatarsal head which remains articulated with the fifth proximal phalanx. There is a nondisplaced fourth metatarsal head fracture. There is complete disruption of the tarsometatarsal joints with overlapping of the cuneiforms and cuboid with the proximal metatarsals on the AP view and oblique view. This indicates significant tarsometatarsal and/or Lisfranc joint injury. There is a displaced fracture extending through the anterior aspect of the calcaneus which disruptsthe anterior subtalar joint facet as well as the articulation of the calcaneocuboid joint. There are punctate densities within the plantar soft tissues of the heel which may represent foreign bodies. IMPRESSION: Study limited by positioning. Disruption of the tarsometatarsal joint spaces and or Lisfranc joint. Difficult to assess for fractures of the cuneiforms and cuboid due to presumed TMT dislocation and fractures. CT may be required to delineate extent of injuries and alignment. There is a comminuted displaced fracture of the calcaneus which disrupts the anterior facet of the subtalar joint as well as the articulation of the calcaneus and cuboid. There is a displaced fracture of the fifth metatarsal head with dorsal medial subluxation of the displaced fifth metatarsal head fracture fragment. There is a nondisplaced fourth metatarsal head fracture. WSN: [id number] Ordering Physician: Stefany Fletcher Dictated By: Kenny Urban MD Dictated Date/Time: 07/23/20 10:05 p Reviewed By: Kenny Urban MD Signed By: Kenny Urban MD Signed Date/Time: 07/23/20 10:05 pm Transcribed By: ELICEO Transcribed Date/Time: 07/23/20 9:58 pm * Exam Date Time Procedure Performing Provider Status 07/23/20 9:09 PM Chest Portable Eleanor Omalley; Shira (Verified) Notes: (Chest Portable) Reason For Exam: Other: RESULT: Chest Portable Chest Portable Reason: Other:; Clinical Question(s): Trauma COMPARISON: None. FINDINGS: LINES AND TUBES: None. LUNGS AND PLEURA: Low lung volumes with mild basilar atelectasis. Lungs are otherwise clear with no consolidation. No pleural effusion. No pneumothorax. HEART, MEDIASTINUM AND ISABELLA: Heart is normal in size. Normal mediastinal and hilar contour. BONES AND SOFT TISSUES: No acute abnormality. IMPRESSION: No acute abnormality. WSN: [id number] Ordering Physician: Stefany Fletcher Dictated By: Kenny Urban MD Dictated Date/Time: 07/23/20 9:19 pm Reviewed By: Kenny Urban MD Signed By: Kenny Urban MD Signed Date/Time: 07/23/20 9:19 pm Transcribed By: ELICEO Transcribed Date/Time: 07/23/20 9:19 pm Vital Signs Most recent to oldest [Reference Range]: 1 2 3 Height 177 cm (07/27/20 11:15 AM) 177 cm (07/27/20 11:09 AM) 177 cm (07/27/20 6:32 AM) Weight 77 kg (07/24/20 7:38 PM) Oxygen Saturation [94-100 %] 100 % (07/27/20 11:15 AM) 99 % (07/27/20 11:09 AM) 96 % (07/27/20 6:32 AM) Pulse Rate [55-90 bpm] 102 bpm *H* (07/27/20 11:15 AM) 99 bpm *H* (07/27/20 11:09 AM) 91 bpm *H* (07/27/20 6:32 AM) Body Mass Index [18.5-24.99] 24.58 (07/24/20 7:38 PM) Blood Pressure [90-138/55-84 mm Hg] 132/73mm Hg (07/27/20 11:15 AM) 132/72mm Hg (07/27/20 11:09 AM) 119/61mm Hg (07/27/20 6:32 AM) Respiratory Rate [16-30 br/min] 19 br/min (07/27/20 2:24 PM) 18 br/min (07/27/20 12:28 PM) 16 br/min (07/27/20 11:15 AM) Temperature [96.8-100.4 DegF] 98.5 DegF (07/27/20 11:15 AM) 98.2 DegF (07/27/20 11:09 AM) 98.3 DegF (07/27/20 6:32 AM) Liters per Minute 6 L/min (07/24/20 3:45 PM) Mode of Delivery (Oxygen) Room air (07/27/20 11:15 AM) Room air (07/27/20 11:09 AM) Room air (07/27/20 6:32 AM) Blood pressure sites Arm, left (07/27/20 11:15 AM) Arm, left (07/27/20 11:09 AM) Arm, left (07/27/20 6:32 AM) Temperature Route Oral (07/27/20 11:15 AM) Oral (07/27/20 11:09 AM) Oral (07/27/20 6:32 AM) Dry Weight 77 kg (07/24/20 7:38 PM)
--- OUTSIDE RECORDS SUMMARY | 2022-12-28 05:51 | XMS_ITS | Continuity of Care Document ---
Author Name Unknown Organization [facility] Address [address] [place] [id number]- Care Team Providers Care Fire Extinguisher Tester Name Role Phone Name Noe FLORES Primary Care Physician [place] [facility] [place]/27/20 - 09/26/[address] [address]- Attending Physician: Not on Staff, Attending MD Admitting Physician: Not on Staff, Admitting MD Referring Physician: Not on Staff, Referring [...] 09/03/20 10:01:00 EST, Route to Pharmacy Electronically, [facility], Partial fill upon patient [...] Maintenance, 09/03/20 9:56:00 EST,Route to Pharmacy Electronically, [facility], Partial fill upon patient request if the prescription is for a schedule II opioid drug., 18... Start Date: 09/03/20 Stop Date: 10/03/20 Status: Ordered gabapentin 100 mg oral capsule 300 mg, 3, capsule, By Mouth, 3 times a day, # 63 capsule, Refills 0, Tot. Refills 0, Maintenance, 09/03/20 9:55:00 EST, Route to Pharmacy Electronically, [facility], Partial fill upon patient request if the prescription is for a schedul... Start Date: 09/03/20 Stop Date: 09/10/20 Status: Ordered Gauze Pad (4 X 4) See Instructions, [...]
--- OUTSIDE RECORDS SUMMARY | 2022-12-28 05:51 | XMS_ITS | Continuity of Care Document ---
Author Name Unknown Organization [facility] Address [address] [place] [id number]- Care Team Providers Care Technical Engineer Name Role Phone Name Noe FLORES Primary Care Physician Encounter [facility] [place] Date(s): 09/17/20 - 10/18/[address] [address] Attending Physician: Trisha Flores MD Admitting Physician: Trisha Flores MD Allergies, Adverse Reactions, [...] 09/03/20 10:01:00 EST, Route to Pharmacy Electronically, [facility], Partial fill upon patient [...] Maintenance, 09/03/20 9:56:00 EST,Route to Pharmacy Electronically, [facility], Partial fill upon patient request if the prescription is for a schedule II opioid drug., 18... Start Date: 09/03/20 Stop Date: 10/03/20 Status: Ordered gabapentin 100 mg oral capsule 300 mg, 3, capsule, By Mouth, 3 times a day, # 63 capsule, Refills 0, Tot. Refills 0, Maintenance, 09/03/20 9:55:00 EST, Route to Pharmacy Electronically, [facility], Partial fill upon patient [...]
--- NOTE | 2022-12-28 05:53 | PC.NURSE ---
Pt A&Ox4, reports 5/10 pressure pain to ribs, and inability to deep breath while lying down, states I feel anxious, I can't fall asleep d/t thinking I'm not going to wake back up, I feel congested . Pt pacing back and forth in room. Pt reports he is diabetic, POC obtained 192. Denies SI/HI, auditory/visual hallucinations.
[2022-12-28 06:21] VITALS: BP 139/88; PULSE 79; RESP 18; TEMP 36.7; O2SAT 97
--- NOTE | 2022-12-28 07:09 | ECG_ITS ---
Test Reason : anxiety Blood Pressure : / mmHG Vent. Rate : 075 BPM Atrial Rate : 075 BPM P-R Int : 134 ms QRS Dur : 084 ms QT Int : 374 ms P-R-T Axes : 052 075 075 degrees QTc Int : 417 ms Normal sinus rhythm Anterior infarct , age undetermined Abnormal ECG When compared with ECG of 20-APR-2021 02:06, QRS voltage has decreased Anterior infarct is now Present T wave amplitude has decreased in Anterolateral leads Referred By: Landy Ventura Electronically Signed By:RAMÓN HDEZ
[2022-12-28 07:13] VITALS: BP 140/75; PULSE 74; RESP 16; O2SAT 96
--- NOTE | 2022-12-28 07:21 | ED.ANXIETY ---
HPI - Anxiety General Chief Complaint: Anxiety Stated Complaint: Anxiety Time Seen by Provider: 12/28/22 06:46 Source: patient, family and early childhood assistant Mode of arrival: ambulatory Limitations: no limitations History of Present Illness HPI narrative: 47-year-old male came in for evaluation of being unable to sleep. Kiswahili-speaking patient came in feeling anxious because he cannot fall to sleep, patient feels nasal congestion with choking feeling when he lay on his back due to mucus dripping down from his nose, patient also been having upper abdominal cramps, having diaphoresis at night. Overall patient is anxious during the interview, complaining of nonspecific chest discomfort. Patient declined otherwise CP or SOB. Patient declined SI or HI or hallucination, patient admits to smoking marijuana but no other recreational drugs. Related Data Allergies Allergy/AdvReac Type Severity Reaction Status Date / Time No Known Allergies Allergy Verified 12/28/22 05:44 Review of Systems Review of Systems: All other systems are reviewed and are negative Constitutional: Reports as per HPI and Reports no additional constitutional complaints Eyes: Reports as per HPI and Reports no additional eye complaints Reports system reviewed and no additional complaints, except as documented Cardiovascular: Reports as per HPI and Reports no additional cardiovascular complaints Respiratory: Reports as per HPI and Reports no additional respiratory complaints Gastrointestinal: Reports as per HPI and Reports no additional gastrointestinal complaints Genitourinary: Reports no additional female genitourinary complaints Musculoskeletal: Reports no additional musculoskeletal complaints Skin/Breast: Reports system reviewed and no additional complaints, except as docu Psychiatric: Reports no additional psychiatric complaints Endocrine: Reports no additional endocrine complaints Hematologic/Lymphatic: Reports no additional hematologic/lymphatic complaints Allergic/Immunologic: Reports no additional allergic/immunologic complaints Reports system reviewed and no additional complaints, except as documented and Reports Abnormal speech present [facility] Social History Social History Alcohol intake: never Smoked in Last 30 Days: Yes Use of substances other than those prescribed or required for medical reasons: Yes Substance Use Type: Marijuana Substance Use Frequency: Daily Advance Directives: No Physical Exam Vital Signs: Vital Signs: Last Vital Signs Temp 98.1 F 12/28/22 06:21 Pulse 74 12/28/22 07:13 Resp 16 12/28/22 07:13 BP 140/75 H 12/28/22 07:13 Pulse Ox 96 12/28/22 07:13 O2 Del Method Room Air 12/28/22 07:13 BMI result Body Mass Index 24.3 Vital signs have been reviewed as appeared to be correct. Blood pressure normal. Heart rate normal. Respiration rate normal. Temperature normal. Oxygen saturation normal. Appearance: Alert. Anxious Oriented X3. No acute distress. Head: Normal external exam. Normocephalic. Atraumatic. No Thomas signs noted. No raccoon eyes noted Eyes: PERRLA. EOMI. Conjunctiva and sclera normal. Eyelids normal. ENT: TM's Normal. Pharynx normal. Uvula midline. Moist mucous membranes. No trismus noted. No drooling noted. No muffled voice noted. Neck: Normal inspection. Neck supple. FROM. No adenopathy. Thyroid Normal. No meningeal signs. No neck mass noted. CVS: Normal heart rate and rhythm. Heart sound normal. No murmurs noted. Pulses normal throughout. Respiratory: No respiratory distress. Painless inspiration. Breath sounds normal. No wheezes/rales/rhonchi noted. Chest nontender. No accessory muscle usage noted or decreased air movement noted. Abdomen: Soft and nontender. Bowel sounds normal in all 4 quadrants. No distention noted. No organomegaly noted. No visible injury noted. Back: No CVA tenderness. Full range of motion noted. Skin: Skin warm and dry. Normal skin color. Normal skin turgor. No rashes/lesions/lacerations noted. Extremities: No lower extremity edema. Extremities exhibit normal range of motion. Extremities nontender. Neuro: Oriented X 3. Cranial nerve exam: II-XII are grossly intact No motor deficit. No sensory deficit. Reflexes normal. Patient Orientation: Person, Place, Time and Situation, okay hygiene and grooming. Fair eye contact, attentive, no tics or tremors. Level of Consciousness: Awake, Appropriate and Alert Patient Behavior: Appropriate, Guarded, Cooperative and Anxious Mood Description: Constricted, Blunted and Apprehensive Affect Description: Constricted, Blunted and Apprehensive Patient Cognition Impaired: No Ability to Follow Directions: Excellent Speech Pattern: Clear, Appropriate and Spontaneous Speech, nonpressured, spontaneous with regular rate and rhythm, normal volume and prosody. No dysarthria. Memory Description: Intact, Immediate Intact and Short Term Intact Hallucinations: None Delusions: Not Present Thought Process: Intact Thought Content: positive for Intact, positive for Logical, denies Suicidal Ideation and denies Homicidal Ideation. Depressive Symptoms: Not present. Judgement and Insight: Limited but adequate. Course Course Course Narrative: 47-year-old male came with it being complain of anxiety and unable to sleep, nonspecific abdominal/chest pain, incidental finding on the EKG with a subtle ST elevation in the lavinia septal leads with elevation of troponin, the case was discussed with Dr. Felipe who recommend to [place] [facility] cardiac [place]. The case was discussed with Dr. Decker who is covering for intervention Cardiology at [facility], due to equivocal story and anxious poor historian patient with low-dose sotalol EKG changes and troponin elevation patient will be transferred to [facility] for further evaluation aspirin was recommended with no heparin. Medications Administered Discontinued Medications Generic Name Dose Route Start Last Admin Trade Name Freq PRN Reason Stop Dose Admin Aspirin 81 mg 12/28/22 08:40 12/28/22 08:47 Aspirin Enteric Coated 81 Mg Tablet.Dr GONSALVES 12/28/22 08:41 81 mg ONCE ONE Administration Medical Decision Making Differential Diagnosis Differential Diagnoses: The differential diagnosis associated with the presentation includes (Anxiety, insomnia, non ST-elevation NC, dehydration, electrolyte disturbance, anemia.) Admission/Observation Consideration of admission/observation: Escalation of care including admission/observation considered Consult Healthcare Provider Management of the patient was discussed with: Experimental Display Builder (Dr. Felipe./Dr. Decker) Lab Data MDM Lab Attestation statement: I reviewed the patient's lab results. 12/28/22 07:25 12/28/22 07:25 Labs: Lab Results 12/28/22 12/28/22 12/28/22 Range/Units 05:45 07:01 07:25 WBC 7.0 (4.8-10.8) X10*3/uL RBC 3.73 L (4.60-5.80) X10*6/uL Hgb 10.8 L (14.0-18.0) g/dl Hct 32.9 L (42.0-52.0) % MCV 88.2 (80.0-98.0) fL MCH 29.0 (27.0-33.0) pg MCHC 32.8 (31.0-36.0) g/dl RDW 14.1 (11.0-16.0) % Plt Count 174 (160-400) X10*3/uL MPV 10.6 (9.4-12.4) fL Immature Gran % (Auto) 0.3 (0.0-0.4) % Neut % (Auto) 69.9 (45-73) % Lymph % (Auto) 21.4 (20-40) % Daniels % (Auto) 5.9 (2-11) % Eos % (Auto) 2.1 (0-4) % Baso % (Auto) 0.4 (0-2) % Lymph # (Auto) 1.5 (1.2-4.9) X10*3/uL Daniels # (Auto) 0.4 (0.1-1.2) X10*3/uL Eos # (Auto) 0.2 (0.0-0.4) X10*3/uL Baso # (Auto) 0.0 (0.0-0.2) X10*3/uL Abs Immat Gran (auto) 0.02 (0.00-0.03) X10*3/uL Absolute Neuts (auto) 4.9 (2.0-8.3) x10*3/uL Absolute Nucleated RBC 0.000 (0.0-0.012) X10*3/uL Nucleated RBC % (auto) 0.0 (0.0-0.2) /100WBC Sodium (135-145) mmol/L Potassium (3.3-5.1) mmol/L Chloride (96-108) mmol/L Carbon Dioxide (22-29) mmol/L Anion Gap (12-20) BUN (9-16) mg/dL Creatinine (0.5-1.4) mg/dL Estim Creat Clear Calc Estimated GFR POC Glucose 192 H (60-115) mg/dL Random Glucose (60-115) mg/dL Calcium (8.4-10.2) mg/dL Total Bilirubin (0.0-1.0) mg/dL Direct Bilirubin (0.0-0.5) mg/dL AST (5-37) U/L ALT (0-40) U/L Alkaline Phosphatase (39-117) U/L Troponin I High Sens (<3.5-35.0) ng/L Total Protein (6.5-8.0) g/dL Albumin (3.5-5.0) g/dL Lipase (8-78) U/L COVID-19 (GARY) Negative (Negative) COVID-19 Clin Com See Note 12/28/22 12/28/22 Range/Units 07:25 07:25 WBC (4.8-10.8) X10*3/uL RBC (4.60-5.80) X10*6/uL Hgb (14.0-18.0) g/dl Hct (42.0-52.0) % MCV (80.0-98.0) fL MCH (27.0-33.0) pg MCHC (31.0-36.0) g/dl RDW (11.0-16.0) % Plt Count (160-400) X10*3/uL MPV (9.4-12.4) fL Immature Gran % (Auto) (0.0-0.4) % Neut % (Auto) (45-73) % Lymph % (Auto) (20-40) % Daniels % (Auto) (2-11) % Eos % (Auto) (0-4) % Baso % (Auto) (0-2) % Lymph # (Auto) (1.2-4.9) X10*3/uL Daniels # (Auto) (0.1-1.2) X10*3/uL Eos # (Auto) (0.0-0.4) X10*3/uL Baso # (Auto) (0.0-0.2) X10*3/uL Abs Immat Gran (auto) (0.00-0.03) X10*3/uL Absolute Neuts (auto) (2.0-8.3) x10*3/uL Absolute Nucleated RBC (0.0-0.012) X10*3/uL Nucleated RBC % (auto) (0.0-0.2) /100WBC Sodium 141 (135-145) mmol/L Potassium 4.8 (3.3-5.1) mmol/L Chloride 110 H (96-108) mmol/L Carbon Dioxide 23 (22-29) mmol/L Anion Gap 13 (12-20) BUN 29 H (9-16) mg/dL Creatinine 1.58 H (0.5-1.4) mg/dL Estim Creat Clear Calc 59.0 Estimated GFR 47 POC Glucose (60-115) mg/dL Random Glucose 177 H (60-115) mg/dL Calcium 9.1 (8.4-10.2) mg/dL Total Bilirubin 0.4 (0.0-1.0) mg/dL Direct Bilirubin < 0.2 (0.0-0.5) mg/dL AST 17 (5-37) U/L ALT 15 (0-40) U/L Alkaline Phosphatase 90 (39-117) U/L Troponin I High Sens 82.7 H (<3.5-35.0) ng/L Total Protein 6.7 (6.5-8.0) g/dL Albumin 4.2 (3.5-5.0) g/dL Lipase 83 H (8-78) U/L COVID-19 (GARY) (Negative) COVID-19 Clin Com Independent Interpretation I performed an independent interpretation of an: EKG (Normal sinus rhythm at 75 beats per minutes, normal intervals, subtle ST elevation in V2 and V3 with Q-wave, with changed from old EKG.) and Plain X-Ray (No acute intrathoracic pathology.) Radiology Impression Discussion of test interpretation with radiology: I have reviewed the radiologist's reading. Chronic Conditions Patient?s care impacted by: Other (Anxiety.) Critical Care Time Critical Care Time Critical Care Time: Yes Total Critical Care Time: 60 Attestation: I spent 60 minutes providing critical care service to the patient, this including time spent at the bedside to evaluate the patient, reassess the patient, monitoring vital signs, review labs, and radiographic studies, counseling the patient/family, discussing the case with consultants, disposition the patient. Discharge Plan Discharge Clinical Impression: Acute anxiety, Panic disorder, Non-ST elevation NC (NSTEMI) Patient Disposition: [facility]
[2022-12-28 07:26] LABS: COVID-19 Test Negative (Negative); IDNOW Serial# 08D9AD1C
[2022-12-28 07:31] LABS: MANUAL DIFF FLAG NO
[2022-12-28 07:33] LABS: Basophils Percent Auto 0.4 % (0-2); Eosinophils Absolute Auto 0.2 X10*3/uL (0.0-0.4); Eosinophils Percent Auto 2.1 % (0-4); Hematocrit 32.9 % (42.0-52.0); Hemoglobin 10.8 g/dl (14.0-18.0); Imm Gran Abs Auto 0.02 X10*3/uL (0.00-0.03); Imm Gran Pct Auto 0.3 % (0.0-0.4); Lymphocytes Absolute Auto 1.5 X10*3/uL (1.2-4.9); Lymphocytes Percent Auto 21.4 % (20-40); Mean Corpuscular HGB Conc 32.8 g/dl (31.0-36.0); Mean Corpuscular Volume 88.2 fL (80.0-98.0); Mean Platelet Volume 10.6 fL (9.4-12.4); Monocytes Absolute Auto 0.4 X10*3/uL (0.1-1.2); Monocytes Percent Auto 5.9 % (2-11); Neutrophils Absolute Auto 4.9 x10*3/uL (2.0-8.3); Neutrophils Percent Auto 69.9 % (45-73); Platelet Count 174 X10*3/uL (160-400); Red Blood Count 3.73 X10*6/uL (4.60-5.80); Red Cell Distribution Width 14.1 % (11.0-16.0)
[2022-12-28 08:00] LABS: Troponin-I High Sensitivity 82.7 ng/L (<3.5-35.0)
[2022-12-28 08:28] LABS: Alanine Aminotransferase 15 U/L (0-40); Albumin Level 4.2 g/dL (3.5-5.0); Alkaline Phosphatase 90 U/L (39-117); Anion Gap 13 (12-20); Aspartate Amino Transferase 17 U/L (5-37); Bilirubin Direct < 0.2 mg/dL (0.0-0.5); Bilirubin Total 0.4 mg/dL (0.0-1.0); Blood Urea Nitrogen 29 mg/dL (9-16); Calcium 9.1 mg/dL (8.4-10.2); Carbon Dioxide 23 mmol/L (22-29); Chloride 110 mmol/L (96-108); Estimated Glomerular Filt Rate 47; Glucose Random 177 mg/dL (60-115); Lipase 83 U/L (8-78); Potassium 4.8 mmol/L (3.3-5.1); Sodium 141 mmol/L (135-145); Total Protein 6.7 g/dL (6.5-8.0)
[2022-12-28] MEDS: Aspirin Enteric Coated 81 MG TABLET.DR PO (08:47)
--- NOTE | 2022-12-28 08:56 | ECG_ITS ---
Test Reason : check st elevation Blood Pressure : / mmHG Vent. Rate : 073 BPM Atrial Rate : 073 BPM P-R Int : 114 ms QRS Dur : 080 ms QT Int : 386 ms P-R-T Axes : 019 066 063 degrees QTc Int : 425 ms Normal sinus rhythm Low voltage QRS Cannot rule out Anterior infarct (cited on or before 28-DEC-2022) Abnormal ECG When compared with ECG of 28-DEC-2022 07:17, No significant change was found Referred By: Landy Ventura Electronically Signed By:RAMÓN HDEZ
--- NOTE | 2022-12-28 09:15 | PC.NURSE ---
plan to transfer to [facility] [place]. US called stephanie for transport.
[2022-12-28] MEDS: LORazepam 1 MG TABLET PO (09:24)
[2022-12-28 09:25] VITALS: BP 142/83; PULSE 90; RESP 12; TEMP 36.8; O2SAT 98
--- NOTE | 2022-12-28 09:31 | PC.NURSE ---
ems arrival- report given
--- NOTE | 2022-12-28 09:37 | PC.NURSE ---
report given to rn at [facility]
[2022-12-28 09:51] LABS: Troponin-I High Sensitivity 79.3 ng/L (<3.5-35.0)
--- NOTE | 2022-12-28 10:02 | MHC.EDTECH ---
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 doc called back 0848. Doc called back 906. I got confirmation from dr rivera at 0910 stephanie was reached at 0913. ALS arrived at 0926.
== END 2022-12-28 09:56 | disposition short-term general hospital (02) ==
PROVIDERS: Emergency Provider Emergency Medicine; PCP Internal Medicine Geriatric Medicine
DX: F41.9 Anxiety disorder, unspecified (principal); F41.0 Panic disorder [episodic paroxysmal anxiety]; I21.4 Non-ST elevation (NSTEMI) myocardial infarction; F12.90 Cannabis use, unspecified, uncomplicated; Z20.822 Contact with and (suspected) exposure to COVID-19
CPT/HCPCS: 36415; 71045; 80048; 80076; 82947; 83690; 84484; 85025; 87635; 93005; 99285

== ENCOUNTER 2023-01-09 13:15 | Emergency (ER) | payer MEDICAID, SELFPAY ==
[2023-01-09 13:19] VITALS: BP 135/70; PULSE 71; RESP 18; TEMP 36; O2SAT 98; BMI 24.3
--- NOTE | 2023-01-09 14:43 | ED.BACK ---
HPI - Back Pain/Injury General Chief Complaint: Back Pain/Injury Stated Complaint: Lower back pain Time Seen by Provider: 01/09/23 13:44 History of Present Illness HPI Narrative: Patient complains of right-sided back pain worse with movement after he lifted some items in a storage container several days ago, no radiation of pain no numbness weakness or tingling no changes to bowel or bladder no IV drugs no fever, no chest pain no abdominal pain no nausea or vomiting, no dysuria no frequency no incontinence Related Data Previous Rx's Medication Instructions Recorded acetaminophen 500 mg tablet 1,000 mg PO QID PRN pain #30 tabs 01/09/23 cyclobenzaprine 5 mg tablet 5 mg PO TID PRN muscle spasm #10 01/09/23 tabs oxycodone 5 mg tablet 5 mg PO Q6H PRN pain #10 tabs 01/09/23 Allergies Allergy/AdvReac Type Severity Reaction Status Date / Time No Known Allergies Allergy Verified 12/28/22 05:44 [facility] Past Medical History Source: nursing notes reviewed Social History Social History Alcohol intake: never Substance Use Type: Marijuana Advance Directives: No Advance Directives Information Provided: No Physical Exam Vital Signs: Vital Signs: Last Vital Signs Temp 96.8 F 01/09/23 13:19 Pulse 71 01/09/23 13:19 Resp 18 01/09/23 13:19 BP 135/70 01/09/23 13:19 Pulse Ox 98 01/09/23 13:19 O2 Del Method Room Air 01/09/23 13:19 BMI result Body Mass Index 24.3 General appearance no acute distress Head is normocephalic atraumatic Neck is supple nontender, chest is clear to auscultation bilateral Heart no murmur The abdomen is soft and nontender The back had bilateral lower lumbar soft tissue paraspinal tenderness, no focal bony tenderness, pain is easily reproduced with movement and relieved in a position of comfort Extremities full range of motion x4 Neuro no focal motor sensory deficits Course Course Course Narrative: Patient with musculoskeletal reproducible right-sided low back pain with no fever no changes to bowel or bladder no muscle weakness is treated with analgesics , ambulates easily Patient did undergo cardiac catheterization for a heart blockage 1 week ago, today he has no chest pain no palpitations no sweating no nausea no symptoms related to exertion, his only complaint today is back pain worse with movement in the right lower back after lifting injury Discharge Plan Discharge Clinical Impression: Low back strain Patient Disposition: Home, Self-Care Additional Instructions: Follow with primary doctor as needed Oxycodone and muscle relaxer Flexeril both cause drowsiness so use only at home, no driving while taking these meds Return any time any worse condition or any concerns Prescriptions: New acetaminophen 500 mg tablet 1,000 mg PO QID PRN (Reason: pain) Qty: 30 0RF oxycodone 5 mg tablet 5 mg PO Q6H PRN (Reason: pain) Qty: 10 0RF Rx Instructions: Partial Fill upon patient request. cyclobenzaprine 5 mg tablet 5 mg PO TID PRN (Reason: muscle spasm) Qty: 10 0RF Interventions: ED Discharge Assessment Last Done: 01/09/23 14:59 Discharge Date/Time: 01/09/23 15:00
== END 2023-01-09 15:00 | disposition home or self-care (01) ==
PROVIDERS: Emergency Provider Emergency Medicine; PCP Internal Medicine Geriatric Medicine
DX: M54.50 Low back pain, unspecified (principal)
CPT/HCPCS: 99282

== ENCOUNTER → 2023-02-10 12:43 | Outpatient (BNVA) | payer MEDICAID, SELFPAY | PROVIDERS: PCP Internal Medicine Geriatric Medicine; Visit Provider Internal Medicine | DX: I25.10 Atherosclerotic heart disease of native coronary artery without angina pectoris (principal); I42.9 Cardiomyopathy, unspecified | CPT/HCPCS: 99202 ==

== ENCOUNTER 2023-04-24 14:28 | Emergency (ER) | payer MEDICAID, SELFPAY ==
--- NOTE | 2023-04-24 14:30 | ECG_ITS ---
Test Reason : CHEST PAIN Blood Pressure : / mmHG Vent. Rate : 065 BPM Atrial Rate : 065 BPM P-R Int : 120 ms QRS Dur : 082 ms QT Int : 388 ms P-R-T Axes : 000 149 128 degrees QTc Int : 403 ms Normal sinus rhythm Right axis deviation Anteroseptal infarct (cited on or before 28-DEC-2022) Abnormal ECG When compared with ECG of 28-DEC-2022 08:43, No significant change was found Referred By: Generic ED Physician Electronically Signed By:MANUEL PUGH MD
[2023-04-24 14:35] VITALS: BP 157/75; PULSE 66; RESP 18; TEMP 36.7; O2SAT 99; BMI 25.8
[2023-04-24 14:48] LABS: MANUAL DIFF FLAG NO
[2023-04-24 14:53] LABS: Basophils Absolute Auto 0.1 X10*3/uL (0.0-0.2); Basophils Percent Auto 0.4 % (0-2); Eosinophils Absolute Auto 0.4 X10*3/uL (0.0-0.4); Eosinophils Percent Auto 3.3 % (0-4); Hematocrit 35.9 % (42.0-52.0); Hemoglobin 12.1 g/dl (14.0-18.0); Imm Gran Abs Auto 0.07 X10*3/uL (0.00-0.03); Imm Gran Pct Auto 0.6 % (0.0-0.4); Lymphocytes Absolute Auto 1.5 X10*3/uL (1.2-4.9); Mean Corpuscular HGB Conc 33.7 g/dl (31.0-36.0); Mean Corpuscular Volume 88.9 fL (80.0-98.0); Mean Platelet Volume 11.5 fL (9.4-12.4); Monocytes Absolute Auto 0.5 X10*3/uL (0.1-1.2); Monocytes Percent Auto 4.5 % (2-11); Neutrophils Absolute Auto 9.1 x10*3/uL (2.0-8.3); Neutrophils Percent Auto 78.2 % (45-73); Platelet Count 174 X10*3/uL (160-400); Red Blood Count 4.04 X10*6/uL (4.60-5.80); Red Cell Distribution Width 12.6 % (11.0-16.0); White Blood Count 11.6 X10*3/uL (4.8-10.8)
[2023-04-24 15:24] LABS: Alanine Aminotransferase 44 U/L (0-40); Albumin Level 4.2 g/dL (3.5-5.0); Alkaline Phosphatase 122 U/L (39-117); Anion Gap 13 (12-20); Aspartate Amino Transferase 18 U/L (5-37); Bilirubin Total 0.4 mg/dL (0.0-1.0); Blood Urea Nitrogen 37 mg/dL (9-16); Calcium 9.5 mg/dL (8.4-10.2); Carbon Dioxide 23 mmol/L (22-29); Chloride 105 mmol/L (96-108); Creatinine Clr Calc Pharmacy 45.7; Estimated Glomerular Filt Rate 35; Glucose Random 406 mg/dL (60-115); Potassium 5.7 mmol/L (3.3-5.1); Sodium 135 mmol/L (135-145); Total Protein 7.2 g/dL (6.5-8.0); Troponin-I High Sensitivity 7.5 ng/L (<3.5-35.0)
[2023-04-24 16:30] VITALS: BP 165/83; PULSE 71; RESP 13; TEMP 36.7; O2SAT 100
--- NOTE | 2023-04-24 16:41 | PC.NURSE ---
pt a&o x4, tearful but cooperative. appears very much in pain and shaking. with at bedside. reporting higher than 10/10 pain. 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
--- NOTE | 2023-04-24 16:55 | ED_ITS ---
HPI - Dental/Oral General Chief complaint: Dental/Oral Stated complaint: tooth pain/ chest pain? Time Seen by Provider: 04/24/23 16:49 Source: patient Mode of arrival: ambulatory Limitations: no limitations History of Present Illness HPI Narrative: Patient comes emergency room complaining of dental pain in the molars in the mandible on the right side. Patient states that he has an appointment pending in 5 days with his dentist for extraction. Patient states that approximately a week ago he finished a course of antibiotics for 11 days. Initially he started doing better. But yesterday the pain returned. Patient denies fever or chills. Related Data Home Medications Medication Instructions Recorded Confirmed cyclobenzaprine 5 mg tablet 5 mg PO TID PRN muscle spasm 02/10/23 02/10/23 dapagliflozin propanediol 10 mg 10 mg PO DAILY 02/10/23 02/10/23 tablet (Farxiga) hydroxyzine HCl 10 mg tablet 10 mg PO BID PRN anxiety 02/10/23 02/10/23 metformin 500 mg tablet 500 mg PO BID 02/10/23 02/10/23 valsartan 40 mg tablet 40 mg PO DAILY 02/10/23 02/10/23 Previous Rx's Medication Instructions Recorded acetaminophen 500 mg tablet 1,000 mg PO QID PRN pain #30 tabs 01/09/23 oxycodone 5 mg tablet 5 mg PO Q6H PRN pain #10 tabs 01/09/23 aspirin 81 mg tablet,delayed 81 mg PO DAILY #90 tabs 02/10/23 release atorvastatin 80 mg tablet 80 mg PO DAILY #90 tabs 02/10/23 metoprolol succinate 25 mg 25 mg PO DAILY #90 tabs 02/10/23 tablet,extended release 24 hr ketorolac 10 mg tablet 10 mg PO TID PRN pain #10 tabs 04/24/23 penicillin V potassium 500 mg 500 mg PO TID 10 days #30 tabs 04/24/23 tablet tramadol 50 mg tablet 50 mg PO BID PRN pain #5 tabs 04/24/23 Allergies Allergy/AdvReac Type Severity Reaction Status Date / Time No Known Allergies Allergy Verified 02/10/23 13:03 Review of Systems Review of Systems: Constitutional : No Weight loss, No Fever, No Chills, No Night Sweats, No Fatigue, No Malaise ENT/Mouth: complaining of dental pain, No Hearing loss, No Ear Pain, No Nasal Congestion, No Sinus Pain, No Hoarseness, No sore throat, No Rhinorrhea, No Swallowing Difficulty Eyes: No Eye Pain, No Swelling, No Redness, No Foreign Body, No Discharge, No Vision Changes Cardiovascular : No Chest Pain, No SOB, No Dyspnea on Exertion, No Orthopnea, No Edema, No Palpitations Respiratory : No Cough, No Sputum, No Wheezing, No Smoke Exposure, No Dyspnea Gastrointestinal : No Nausea, No Vomiting, No Diarrhea, No Constipation, No abdominal Pain, No Hematochezia, No Melena Genitourinary : no irregular bleeding, No Dysuria, No Urinary Frequency, No Hematuria, No Urinary Incontinence, No Urgency, No Flank Pain, No Urinary Flow Changes, No Hesitancy Musculoskeletal : No joint pain, No Myalgias, No Joint Swelling Skin : No Skin Lesions, No rash Neuro : No Weakness, No Numbness, No Paresthesias, No Loss of Consciousness, No Dizziness, No Headache Psych : No Anxiety/Panic, No Depression, No SI/HI/AH/VH, No Social Issues, Heme/Lymph: No Bruising, No Bleeding,No Lymphadenopathy Endocrine : No Polyuria, No Polydipsia, No Temperature Intolerance PMFSH Past Medical History Medical History Atherosclerotic cardiovascular disease Surgical History History of surgery on lower extremity Family History Family History (Updated 02/10/23 @ 13:08 by Anabel Mandel) Father Alzheimer disease Diabetes Mother Diabetes Maternal Grandmother Pacemaker Heart problem Social History Social History Alcohol intake: never Smoked in Last 30 Days: Yes Use of substances other than those prescribed or required for medical reasons: Yes Substance Use Type: Marijuana Advance Directives: No Advance Directives Information Provided: No Physical Exam Vital Signs: Vital Signs: Last Vital Signs Temp 98.0 F 04/24/23 16:30 Pulse 71 04/24/23 16:30 Resp 13 04/24/23 16:30 BP 165/83 H 04/24/23 16:30 Pulse Ox 100 04/24/23 16:30 O2 Del Method Room Air 04/24/23 16:30 BMI result Body Mass Index 25.8 Const: Other: Appearance: Alert. Oriented X3. No acute distress. Eyes: Pupils equal, round and reactive to light. ENT: Pharynx normal. Molar 31 and 30 are chipped off, deep cavity, no obvious abscess that could be drained. Neck: Normal inspection. Neck supple. No lymph nodes noted. No crepitus CVS: Normal heart rate and rhythm. Pulses normal. Normal S1 and S2 Respiratory: No respiratory distress. Breath sounds normal. No Wheezing. No rales Abdomen: Soft and nontender. No rigidity. No distention. Skin: Skin warm and dry. Normal skin color. Normal skin turgor. Extremities: No lower extremity edema. No Lacerations. No Rash Neuro: Oriented X 3. No motor deficit. No sensory deficit. Moving all extremities. No slurred speech. CN 2 through 12 grossly intact Psych: calm, cooperative, normal affect Medical Decision Making Medical Decision Making [facility] Narrative: -patient was given IM ketorolac and p.o. penicillin. Patient has an appointment with his dentist in 5 days. -I reviewed the patient's labs, troponin negative, EKG my interpretation: Normal sinus rhythm, heart rate 65, no ST segment depression or elevation, no T- wave inversion, QTC 403 -patient states that today he has no chest pain at all. Differential Diagnosis Differential Diagnoses: The differential diagnosis associated with the presentation includes (Cracked tooth, dental abscess, caries) Lab Data [facility] Lab Attestation statement: I reviewed the patient's lab results. 04/24/23 14:44 04/24/23 14:44 Labs: Lab Results 04/24/23 04/24/23 04/24/23 Range/Units 14:44 14:44 14:44 WBC 11.6 H (4.8-10.8) X10*3/uL RBC 4.04 L (4.60-5.80) X10*6/uL Hgb 12.1 L (14.0-18.0) g/dl Hct 35.9 L (42.0-52.0) % MCV 88.9 (80.0-98.0) fL MCH 30.0 (27.0-33.0) pg MCHC 33.7 (31.0-36.0) g/dl RDW 12.6 (11.0-16.0) % Plt Count 174 (160-400) X10*3/uL MPV 11.5 (9.4-12.4) fL Immature Gran % (Auto) 0.6 H (0.0-0.4) % Neut % (Auto) 78.2 H (45-73) % Lymph % (Auto) 13.0 L (20-40) % [place] % (Auto) 4.5 (2-11) % Eos % (Auto) 3.3 (0-4) % Baso % (Auto) 0.4 (0-2) % Lymph # (Auto) 1.5 (1.2-4.9) X10*3/uL [place] # (Auto) 0.5 (0.1-1.2) X10*3/uL Eos # (Auto) 0.4 (0.0-0.4) X10*3/uL Baso # (Auto) 0.1 (0.0-0.2) X10*3/uL Abs Immat Gran (auto) 0.07 H (0.00-0.03) X10*3/uL Absolute Neuts (auto) 9.1 H (2.0-8.3) x10*3/uL Absolute Nucleated RBC 0.000 (0.0-0.012) X10*3/uL Nucleated RBC % (auto) 0.0 (0.0-0.2) /100WBC Sodium 135 (135-145) mmol/L Potassium 5.7 H (3.3-5.1) mmol/L Chloride 105 (96-108) mmol/L Carbon Dioxide 23 (22-29) mmol/L Anion Gap 13 (12-20) BUN 37 H (9-16) mg/dL Creatinine 2.04 H (0.5-1.4) mg/dL Estim Creat Clear Calc 45.7 Estimated GFR 35 Random Glucose 406 H* (60-115) mg/dL Calcium 9.5 (8.4-10.2) mg/dL Total Bilirubin 0.4 (0.0-1.0) mg/dL AST 18 (5-37) U/L ALT 44 H (0-40) U/L Alkaline Phosphatase 122 H (39-117) U/L Troponin I High Sens 7.5 D (<3.5-35.0) ng/L Total Protein 7.2 (6.5-8.0) g/dL Albumin 4.2 (3.5-5.0) g/dL Independent Interpretation I performed an independent interpretation of an: EKG Discharge Plan Discharge Clinical Impression: Pain, dental Patient Disposition: Home, Self-Care Instructions: Toothache (ED) Additional Instructions: Please follow-up with your primary care physician tomorrow. If you have any worsening or new symptoms, please return to the emergency room or call 911 Prescriptions: New penicillin V potassium 500 mg tablet 500 mg PO TID 10 Days Qty: 30 0RF ketorolac 10 mg tablet 10 mg PO TID PRN (Reason: pain) Qty: 10 0RF Rx Instructions: Do not use Aleve, ibuprofen with this medication, only tramadol or Tylenol tramadol 50 mg tablet 50 mg PO BID PRN (Reason: pain) Qty: 5 0RF Rx Instructions: P.r.n. severe pain, only if ketorolac does not control the pain No Action acetaminophen 500 mg tablet 1,000 mg PO QID PRN (Reason: pain) Qty: 30 0RF oxycodone 5 mg tablet 5 mg PO Q6H PRN (Reason: pain) Qty: 10 0RF Rx Instructions: Partial Fill upon patient request. cyclobenzaprine 5 mg tablet 5 mg PO TID PRN (Reason: muscle spasm) valsartan 40 mg tablet 40 mg PO DAILY hydroxyzine HCl 10 mg tablet 10 mg PO BID PRN (Reason: anxiety) metformin 500 mg tablet 500 mg PO BID Farxiga 10 mg tablet 10 mg PO DAILY aspirin 81 mg tablet,delayed release (DR/EC) 81 mg PO DAILY Qty: 90 3RF atorvastatin 80 mg tablet 80 mg PO DAILY Qty: 90 3RF metoprolol succinate 25 mg tablet extended release 24 hr 25 mg PO DAILY Qty: 90 3RF
[2023-04-24] MEDS: Penicillin V Potassium 250 MG TABLET 500 MG PO (17:21)
[2023-04-24] MEDS: Ketorolac Tromethamine 60 MG/2 ML VIAL IM (17:22)
[2023-04-24 17:25] VITALS: BP 156/94; PULSE 73; RESP 15; O2SAT 99
== END 2023-04-24 17:58 | disposition home or self-care (01) ==
PROVIDERS: Emergency Provider Emergency Medicine; PCP Internal Medicine Geriatric Medicine
DX: K08.89 Other specified disorders of teeth and supporting structures (principal); Z79.899 Other long term (current) drug therapy; F12.90 Cannabis use, unspecified, uncomplicated
CPT/HCPCS: 36415; 80053; 84484; 85025; 93005; 96372; 99284; 99285; J1885

== ENCOUNTER → 2023-04-24 14:30 | Outpatient (BNV) | payer MEDICAID, SELFPAY | PROVIDERS: Emergency Provider Emergency Medicine; PCP Internal Medicine Geriatric Medicine; Visit Provider Internal Medicine Cardiovascular Disease | DX: R07.9 Chest pain, unspecified (principal) | CPT/HCPCS: 93010 ==

== ENCOUNTER 2023-06-17 09:26 | Outpatient (REF) | payer MEDICAID, SELFPAY ==
[2023-06-17 11:24] LABS: Anion Gap 13 (12-20); Blood Urea Nitrogen 20 mg/dL (9-16); Calcium 9.2 mg/dL (8.4-10.2); Carbon Dioxide 26 mmol/L (22-29); Chloride 107 mmol/L (96-108); Estimated Glomerular Filt Rate 50; Glucose Random 253 mg/dL (60-115); Potassium 4.7 mmol/L (3.3-5.1); Sodium 141 mmol/L (135-145)
== END 2023-06-17 09:27 | disposition home or self-care (01) ==
LOC: HO.LAB 09:26
PROVIDERS: Visit Provider Internal Medicine
DX: I25.10 Atherosclerotic heart disease of native coronary artery without angina pectoris (principal); I42.9 Cardiomyopathy, unspecified
CPT/HCPCS: 36415; 80048

== ENCOUNTER → 2023-08-01 14:36 | Outpatient (REF) | payer MEDICAID, SELFPAY ==
--- NOTE | 2023-08-01 14:38 | CA_ITS ---
Transthoracic Echocardiogram Patient (Last, First, Middle): Vinicio Harvey, Gender: Male Date of : 1975 Age: 47 Procedure Date: 08/01/2023 Procedure Type: Transthoracic Echocardiogram Location: OP Height: 177.8 cm Weight: 77.11 kg BSA: 1.95 m2 Heart Rate: bpm BP: 100 / 60 mmHg Jazz Musician: KORTNEY/LUCY Referring MD: Kermit Decker MD Patternmaker Wood: Kermit Decker MD Symptoms: I42.9 - Cardiomyopathy, unspecified Study Quality: Adequate with contrast Conclusions: - Normal left ventricular cavity size. There is mildly increased left ventricular wall thickness. The left ventricular systolic function is borderline reduced. The visually estimated ejection fraction is between 45-50%. - The apex, apical anterior, and apical septum segments are akinetic. - Normal right ventricular cavity size and systolic function. Findings Procedure Information Contrast agent, definity, is being given per protocol without apparent complications. Left Ventricle Normal left ventricular cavity size. There is mildly increased left ventricular wall thickness. The left ventricular systolic function is borderline reduced. The visually estimated ejection fraction is between 45 50%. There is evidence of regional wall motion abnormalities. Diastolic function is normal for age. Wall Motion Rest Echo Findings The apex, apical anterior, and apical septum segments are akinetic. Right Ventricle Normal right ventricular cavity size and systolic function. Atria The left atrium is mildly dilated. The right atrium is normal in size. Aortic Valve Normal aortic valve structure and function. There is no aortic valve stenosis. There is no aortic valve regurgitation. Mitral Valve Normal mitral valve structure and function. There is trace mitral valve regurgitation. There is no mitral valve stenosis. Tricuspid Valve Normal tricuspid valve structure. Great Vessels All visible segments of the aorta are normal in size. The visualized portions of the pulmonary artery and branches are normal. Venous The inferior vena cava is normal in size and collapses greater than 50% with inspiration. Pericardium/Pleural There is no evidence of pericardial effusion. Prior Study Comparison No prior study available for comparison. Measurements 2D Linear Measurements IVSd: 1.15 0.6-0.9/0.6-1.0 cm LVIDd: 4.95 3.9-5.3/4.2-5.9 cm LVIDd Index: 2.54 2.4-3.2/2.2-3.1 cm/m2 LVIDs: 3.45 2.0-3.6 cm LVPWd: 1.13 0.7-1.1 cm LA Diam: 3.50 2.7-3.8/3.0-4.0 cm LAIDs Index: 1.79 1.5-2.3 cm/m2 LV Mass: 266.91 67-162/88-224 g LV Mass Index: 136.88 43-95/49-115 g/m2 LVOT Diam: 2.00 3.0+(-)1.3 cm 2D Systolic Function EF 4C: 61.40 >55% EF 2C: 61.90 >55% Mitral Valve MV Pk E: 0.76 MV PK A: 0.52 MV Decel Time: 255.00 E/A: 1.50 E'Lateral: 9.25 E'Medial: 8.38 E/E' Med: 9.10 E/E' Lat: 8.20 PHT: 75.00 MVA PHT: 2.93 Decel [place]: 2.99 Aortic Valve AoV Pk [place]: 1.37 AoV Mn [place]: 0.94 AoV VTI: 0.32 AoV Pk Grad: 8.00 Aov Mn Grad: 4.00 CARMEN Cont.VTI: 2.21 LVOT LVOT Pk [place]: 1.00 LVOT Mn [place]: 0.64 LVOT VTI: 0.22 LVOT Pk Grad: 4.00 LVOT Mn Grad: 2.00 LVOT Diam: 2.00 LVOT Area: 3.14 Diastolic Function MV Pk E: 0.76 MV Pk A: 0.52 E/A: 1.50 E'Medial: 8.38 E/E' Med: 9.10 E' Laterial: 9.25 E/E' Lat: 8.20 Right Ventricle TAPSE (mm): 24.80 TVS' [place]: 10.80 Tricuspid Valve TR Pk [place]: 2.20 TR Pk Grad: 19.00 RA Press: 3.00 RVSP: 22.00 Great Vessels Aorta Sinus of Valsalva: 3.56 2.0-3.[address] [place]: 2.94 1.7-3.4 cm Ao Asc: 3.00 2.1-3.4 cm Updated in Other Vendor System with Status of Final Kermit Decker MD electronically signed on 08/02/2023 2:11:58 PM with status of Final
== END ==
LOC: HO.CARD 14:36
PROVIDERS: PCP Internal Medicine Geriatric Medicine; Visit Provider Internal Medicine Cardiovascular Disease
DX: I42.9 Cardiomyopathy, unspecified (principal)
CPT/HCPCS: 93306; Q9957

== ENCOUNTER → 2023-08-01 14:38 | Outpatient (BNV) | payer MEDICAID, SELFPAY | PROVIDERS: PCP Internal Medicine Geriatric Medicine; Visit Provider Internal Medicine Cardiovascular Disease | DX: I42.9 Cardiomyopathy, unspecified (principal) | CPT/HCPCS: 93306 ==

== ENCOUNTER 2023-08-05 08:55 | Outpatient (AMB) | payer MEDICAID, SELFPAY ==
--- NOTE | 2023-08-05 08:58 | A.OFFVIS_ITS ---
Intake Vital Signs 08/05/23 08:59 Height 5 ft 10 in Weight 166 lb 10.711 oz BMI 23.9 BP 114/72 Blood Pressure Location Lt brachial Position Sitting Pulse 63 Pulse Source Pulse Oximeter Intake Visit Reasons: f/u after testing Electroencephalographic Technologist Required: Yes Electroencephalographic Technologist Language: Hydraulic Press In Operator Name: gerri hauser [id number] Film Vault Supervisor: Film Vault Supervisor Present Accompanied by: Significant Other Allergies No Known Allergies Allergy (Verified 02/10/23 13:03) Medication List - Last Reconciled 08/05/23 by VEE Bell acetaminophen 1,000 mg (2 x 500 mg) PO QID PRN aspirin 81 mg PO DAILY atorvastatin 80 mg PO DAILY dapagliflozin propanediol (Farxiga) 10 mg PO DAILY hydroxyzine HCl 10 mg PO BID PRN metformin 500 mg PO BID metoprolol succinate ER 25 mg PO DAILY HPI f/u after testing HPI Details Vinicio is a 47-year-old male with past medical history of diabetes, hyperlipidemia, chronic kidney disease, who had an anterior STEMI Vs stress CMP 12/2022, who had cardiac cath a few days later showing [employer]ISTRAR the proximal LAD, with collateral, severe OM2 stenosis which was managed medically. An MRI was ordered to assess LAD viability. He recently underwent an echocardiogram and now presents for follow-up. Today he reports that he did go for his MRI but had anxiety and was not able to complete it. He feels he has been doing well with no concerning symptoms. He denies chest discomfort at rest or with activity. He has no shortness of breath, palpitations, presyncope, syncope, PND, orthopnea or edema. He does report fatigue. He does only light physical activity. He is taking his medications as directed. 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 [facility] Medical History Atherosclerotic cardiovascular disease Surgical History History of surgery on lower extremity Family History Father Alzheimer disease Diabetes Mother Diabetes Maternal Grandmother Pacemaker Heart problem Social History Alcohol intake: never Substance Use Type: Marijuana Review of Systems Const All systems reviewed & are unremarkable except as noted in HPI and below ENT Denies dizziness Card Denies chest pain, Denies chest pain at rest, Denies chest pain with activity, Denies rapid heart rate, Denies pedal edema, Denies edema, Denies leg edema, Denies lightheadedness, Denies palpitations, Denies dyspnea, Denies dyspnea on exertion and Denies orthopnea Resp Denies cough, Denies dyspnea and Denies dyspnea on exertion GI Denies hematochezia and Denies change in stool character Musc Denies abnormal gait, Denies limited range of motion, Denies muscle cramps, Denies muscle weakness, Denies numbness, Denies radiating pain into limb, Denies stiffness and Denies tingling Neuro Denies abnormal gait, Denies dizziness, Denies numbness and Denies tingling Endo Denies palpitations Physical Exam Vital Signs: Last Vital Signs Pulse 63 08/05/23 08:59 BP 114/72 08/05/23 08:59 BMI result Body Mass Index 23.9 Const General: cooperative, healthy appearing, comfortable and no acute distress Orientation/consciousness: patient oriented x3 HEENT Head: Yes normal to inspection Neck Neck: Yes normal visual inspection Resp Effort & Inspection: normal respiratory effort Auscultation: clear to auscultation bilaterally, no crackles, no rales, no rhonchi and no wheezes Cardio Jugular venous distension: no JVD Rate: regular rate Rhythm: regular rhythm Heart sounds: S1 normal heart sound present, S2 normal heart sound present, no murmurs and no rubs Neuro General: patient oriented x3 Extrem General: Yes normal to inspection, No no pedal edema and No calf tenderness Psych Appearance: grossly normal Mental Status: mental status grossly normal Speech and movement: Normal speech and movement present Assessment & Plan Assessment & Plan (1) STEMI (ST elevation myocardial infarction): Code(s): I21.3 - ST elevation (STEMI) myocardial infarction of unspecified site Plan: Presented to [facility] 12/28/2022 with symptoms of anxiety, unable to sleep. Labs showed elevation in troponins. EKG showed anterior ST elevations. He was treated for anterior STEMI and transferred to [facility]. They found his troponins to be stable. He was ultimately managed for presumed stress-induced cardiomyopathy, and not felt to have actual STEMI. A few days later he underwent cardiac catheterization showing occlusion of the proximal to mid LAD with collaterals, severe OM to disease. A cardiac MRI was ordered and patient states he was unable to complete due to issues with anxiety. Echocardiogram was done post [place] showing EF 35-40%, apical and mid anterior akinesis. A repeat echocardiogram was done on 08/01/2023 showing EF 45-50%, apex, apical anterior and apical symptom akinetic. Reviewed with results with him. His primary symptom is fatigue. He denies chest discomfort or shortness of breath. He continues to smoke a half a pack of cigarettes per day and was strongly encouraged to stop smoking completely. Will have him continue on aspirin indefinitely. Continue beta-pavan, high-dose atorvastatin, valsartan. Vital signs well controlled. Continue activity as tolerated. Will notify primary metallurgy teacher that MRI not completed. Cardiology follow-up 4 months, sooner if needed. (2) Atherosclerotic cardiovascular disease: Code(s): I25.10 - Atherosclerotic heart disease of [place] coronary artery without angina pectoris (3) Cardiomyopathy: Code(s): I42.9 - Cardiomyopathy, unspecified Qualifiers: Cardiomyopathy type: ischemic Qualified Code(s): I25.5 - Ischemic cardiomyopathy Plan: Post [place] EF as low as 35-40%. Has ischemic cardiomyopathy. Recent echo does show some improvement up to 45-50%. Continue to metoprolol XL and valsartan for neurohormonal modulation. No clinical signs of heart failure on examination. (4) Hyperlipidemia: Code(s): E78.5 - Hyperlipidemia, unspecified Plan: [place] LDL goal less than 70 in patient with CAD. Continue high-dose atorvastatin. Will order lipid profile to be done with next lab draw. (5) S/P cardiac catheterization: Comment: 01/10/2023 occlusion of the proximal to mid LAD, right to left collaterals, severe OM 2 disease, 90% stenosis, distal left circumflex 65% stenosis, RCA mid 30% stenosis Code(s): Z98.890 - Other specified postprocedural states Orders: Orders Lipid Panel Today E78.5 - Hyperlipidemia, unspecified Coding Level of Care Code Est Pt Level 4 (94474) Diagnoses STEMI (ST elevation myocardial infarction) I21.3 Atherosclerotic cardiovascular disease I25.10 Ischemic cardiomyopathy I25.5 Cardiomyopathy type: ischemic Hyperlipidemia E78.5 S/P cardiac catheterization Z98.890 Time Spent (min) 28
[2023-08-05 08:59] VITALS: BP 114/72; PULSE 63; BMI 23.9
== END 2023-08-05 09:35 | disposition home or self-care (01) ==
PROVIDERS: PCP Internal Medicine Geriatric Medicine; Visit Provider Nurse Practitioner Family
DX: I21.3 ST elevation (STEMI) myocardial infarction of unspecified site (principal); I25.10 Atherosclerotic heart disease of native coronary artery without angina pectoris; I25.5 Ischemic cardiomyopathy; E78.5 Hyperlipidemia, unspecified; Z98.890 Other specified postprocedural states
CPT/HCPCS: 99214

== ENCOUNTER → 2023-08-05 08:55 | Outpatient (BNVA) | payer MEDICAID, SELFPAY | PROVIDERS: PCP Internal Medicine Geriatric Medicine; Visit Provider Nurse Practitioner Family | DX: I21.3 ST elevation (STEMI) myocardial infarction of unspecified site (principal); I25.10 Atherosclerotic heart disease of native coronary artery without angina pectoris; I25.5 Ischemic cardiomyopathy; E78.5 Hyperlipidemia, unspecified; Z98.890 Other specified postprocedural states | CPT/HCPCS: 99212 ==

== ENCOUNTER → 2023-08-15 09:43 | Outpatient (REF) | payer MEDICAID, SELFPAY ==
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
== END ==
LOC: HO.CARD 09:43
PROVIDERS: PCP Internal Medicine Geriatric Medicine; Visit Provider Nurse Practitioner Family
DX: I21.3 ST elevation (STEMI) myocardial infarction of unspecified site (principal)
CPT/HCPCS: 93017

== ENCOUNTER 2023-08-29 15:00 | Outpatient (AMB) | payer MEDICAID, SELFPAY ==
--- NOTE | 2023-08-29 15:02 | MHC.OFFVIS ---
Intake Vital Signs 08/29/23 15:03 Height 5 ft 10 in Weight 168 lb 6.931 oz BMI 24.2 BP 114/72 Blood Pressure Location Lt brachial Position Sitting Pulse 63 Pulse Source Pulse Oximeter Intake Visit Reasons: f/up per DC Outside [employer] Required: Yes Allergies No Known Allergies Allergy (Verified 08/29/23 15:05) Medication List - Last Reconciled 08/29/23 by Kiara Garnett, CHRISTIANO-C acetaminophen 1,000 mg (2 x 500 mg) PO QID PRN aspirin 81 mg PO DAILY atorvastatin 80 mg PO DAILY dapagliflozin propanediol (Farxiga) 10 mg PO DAILY metformin 500 mg PO BID metoprolol succinate ER 25 mg PO DAILY HPI f/up per DC HPI Details Vinicio is a 48-year-old male with past medical history of diabetes, hyperlipidemia, chronic kidney disease, who had an anterior STEMI Vs stress CMP 12/2022, who had cardiac cath a few days later showing CINDER BLOCK MASON the proximal LAD, with collateral, severe OM2 stenosis which was managed medically. An MRI was ordered to assess LAD viability and patient was not able to complete due to claustrophobia. He did have repeat echocardiogram showing some improvement in his EF. An exercise stress test was just done and he now presents for follow-up. Today he reports he has been feeling generally well. He does admit to being sedentary and will walk his dog on occasion. During the stress test he was noted to have mild to moderate shortness of breath, no chest discomfort. He denies having chest discomfort at rest or with activity. No heart palpitations, presyncope, syncope, falls. No PND, orthopnea or edema. He is taking all his meds as directed. His is present. [facility] Medical History Atherosclerotic cardiovascular disease Surgical History History of surgery on lower extremity Family History Father Alzheimer disease Diabetes Mother Diabetes Maternal Grandmother Pacemaker Heart problem Alcohol intake: never Substance Use Type: Marijuana Review of Systems Const All systems reviewed & are unremarkable except as noted in HPI and below ENT Denies dizziness Card Denies chest pain, Denies chest pain at rest, Denies chest pain with activity, Denies rapid heart rate, Denies pedal edema, Denies edema, Denies leg edema, Denies lightheadedness, Denies palpitations, Denies dyspnea, Denies dyspnea on exertion and Denies orthopnea Resp Denies cough, Denies dyspnea and Denies dyspnea on exertion GI Denies hematochezia and Denies change in stool character Musc Denies abnormal gait, Denies limited range of motion, Denies muscle cramps, Denies muscle weakness, Denies numbness, Denies radiating pain into limb, Denies stiffness and Denies tingling Neuro Denies abnormal gait, Denies dizziness, Denies numbness and Denies tingling Endo Denies palpitations Physical Exam Vital Signs: Last Vital Signs Pulse 63 08/29/23 15:03 BP 114/72 08/29/23 15:03 BMI result Body Mass Index 24.2 Const General: cooperative, healthy appearing, comfortable and no acute distress Orientation/consciousness: patient oriented x3 Neck Neck: Yes normal visual inspection Resp Effort & Inspection: normal respiratory effort Auscultation: clear to auscultation bilaterally, no crackles, no rales, no rhonchi and no wheezes Cardio Jugular venous distension: no JVD Rate: regular rate Rhythm: regular rhythm Heart sounds: S1 normal heart sound present, S2 normal heart sound present, no murmurs and no rubs Neuro General: patient oriented x3 Extrem General: Yes normal to inspection Psych Appearance: grossly normal Mental Status: mental status grossly normal Speech and movement: Normal speech and movement present Assessment & Plan Assessment & Plan (1) STEMI (ST elevation myocardial infarction): Code(s): I21.3 - ST elevation (STEMI) myocardial infarction of unspecified site Qualifiers: Involved coronary artery: LAD coronary artery Qualified Code(s): I21.02 - ST elevation (STEMI) myocardial infarction involving left anterior descending coronary artery Plan: Presented to [facility] 12/28/2022 with symptoms of anxiety, unable to sleep. Labs showed elevation in troponins. EKG showed anterior ST elevations. He was treated for anterior STEMI and transferred to [facility]. They found his troponins to be stable. He was ultimately managed for presumed stress-induced cardiomyopathy, and not felt to have actual STEMI. A few days later he underwent cardiac catheterization showing occlusion of the proximal to mid LAD with collaterals, severe OM to disease- confirming STEMI. A cardiac MRI was ordered and patient states he was unable to complete due to issues with anxiety/claustrophobia. Echocardiogram was done post SC showing EF 35-40%, apical and mid anterior akinesis. A repeat echocardiogram was done on 08/01/2023 showing EF 45-50%, apex, apical anterior and apical symptom akinetic. On last visit he reported his primary symptom as fatigue. He underwent an exercise stress test on 08/15/2023 with exercise 5 minutes, [id number] shortness of breath, no chest discomfort, ST sagging noted inferiorly and V6. He was brought into the office today to discuss plan of care. Spent 20 minutes going over all the above and treatment options. His EF is still mildly reduced and LAD is occluded. Reviewed 1. Ongoing medical management 2. PCI to LAD 3. Referral for Coronary artery bypass grafting. At this time he is unsure. He is mostly sedentary and denies shortness of breath with his ADLs however was short of breath on the stress test. Will start him in cardiac rehab and see how he is going forward. If he is limited by symptoms then he will readdress options. He continues to smoke a half a pack of cigarettes per day and was strongly encouraged to stop smoking completely. No med changes made at present. ill Continue on aspirin indefinitely. Continue beta-pavan, high-dose atorvastatin, valsartan. Vital signs well controlled. Cardiology follow-up 3-4 months, sooner if needed. (2) Atherosclerotic cardiovascular disease: Code(s): I25.10 - Atherosclerotic heart disease of [place] coronary artery without angina pectoris (3) Cardiomyopathy: Code(s): I42.9 - Cardiomyopathy, unspecified Qualifiers: Cardiomyopathy type: ischemic Qualified Code(s): I25.5 - Ischemic cardiomyopathy Plan: Post SC EF as low as 35-40%. Has ischemic cardiomyopathy. Recent echo does show some improvement up to 45-50%. Continue to metoprolol XL and valsartan for neurohormonal modulation. No clinical signs of heart failure on examination. (4) Hyperlipidemia: Code(s): E78.5 - Hyperlipidemia, unspecified Qualifiers: Hyperlipidemia type: unspecified Qualified Code(s): E78.5 - Hyperlipidemia, unspecified Plan: [place] LDL goal less than 70 in patient with CAD. Continue high-dose atorvastatin. Will order lipid profile to be done with next lab draw. (5) S/P cardiac catheterization: Comment: 01/10/2023 occlusion of the proximal to mid LAD, right to left collaterals, severe OM 2 disease, 90% stenosis, distal left circumflex 65% stenosis, RCA mid 30% stenosis Code(s): Z98.890 - Other specified postprocedural states Orders: Orders Cardiac Rehab Today I21.3 - ST elevation (STEMI) myocardial infarction of unspecified site, I42.9 - Cardiomyopathy, unspecified Coding Level of Care Code Est Pt Level 4 (24378) Diagnoses ST elevation myocardial infarction involving left anterior descending (LAD) coronary artery I21.02 Involved coronary artery: LAD coronary artery Atherosclerotic cardiovascular disease I25.10 Ischemic cardiomyopathy I25.5 Cardiomyopathy type: ischemic Hyperlipidemia, unspecified hyperlipidemia type E78.5 Hyperlipidemia type: unspecified S/P cardiac catheterization Z98.890 Time Spent (min) 30
[2023-08-29 15:03] VITALS: BP 114/72; PULSE 63; BMI 24.2
== END 2023-08-29 15:48 | disposition home or self-care (01) ==
PROVIDERS: PCP Internal Medicine Geriatric Medicine; Visit Provider Nurse Practitioner Family
DX: I21.02 ST elevation (STEMI) myocardial infarction involving left anterior descending coronary artery (principal); I25.10 Atherosclerotic heart disease of native coronary artery without angina pectoris; I25.5 Ischemic cardiomyopathy; E78.5 Hyperlipidemia, unspecified; Z98.890 Other specified postprocedural states
CPT/HCPCS: 99214

== ENCOUNTER → 2023-08-29 15:00 | Outpatient (BNVA) | payer MEDICAID, SELFPAY | PROVIDERS: PCP Internal Medicine Geriatric Medicine; Visit Provider Nurse Practitioner Family | DX: I21.02 ST elevation (STEMI) myocardial infarction involving left anterior descending coronary artery (principal); I25.10 Atherosclerotic heart disease of native coronary artery without angina pectoris; I25.5 Ischemic cardiomyopathy; I10 Essential (primary) hypertension; E78.5 Hyperlipidemia, unspecified; Z98.890 Other specified postprocedural states | CPT/HCPCS: 99212 ==

== ENCOUNTER 2023-12-12 14:10 | Outpatient (AMB) | payer MEDICAID, SELFPAY ==
[2023-12-12 14:16] VITALS: BP 108/60; PULSE 70; BMI 23.7
--- NOTE | 2023-12-12 14:16 | MHC.OFFVIS ---
Intake Vital Signs 12/12/23 14:16 Height 5 ft 10 in Weight 165 lb 5.547 oz BMI 23.7 BP 108/60 Blood Pressure Location Lt brachial Position Sitting Pulse 70 Intake Visit Reasons: f/up per dc Intake Note: follow up Hand Scraper Required: Yes Hand Scraper Language: Pharmacy Care Coordinator Name: Alexander [id number] Accompanied by: Spouse Allergies No Known Allergies Allergy (Verified 12/12/23 14:28) Medication List - Last Reconciled 12/12/23 by Kermit Decker MD acetaminophen 1,000 mg (2 x 500 mg) PO QID PRN aspirin 81 mg PO DAILY atorvastatin 80 mg PO DAILY dapagliflozin propanediol (Farxiga) 10 mg PO DAILY metformin 500 mg PO BID metoprolol succinate ER 25 mg PO DAILY HPI HPI Comments History of Present Illness Details [age] gentleman who is here for follow-up. He was diagnosed with cardiomyopathy and was transferred to [facility] where he underwent cardiac catheterization. This revealed LAD RN TRAVELING as well as circumflex stenosis. He was started on guideline directed medical therapy. Our plan was to do a cardiac MRI. We referred him for cardiac MRI but he was unable to do it because of significant claustrophobia and anxiety. He also could not do nuclear viability study. On medications his ejection fraction has improved from severely reduced to 40-45% at this point but he continues to have akinesis of the LAD territory. Clinically he has been stable and has no chest discomfort. He has an active smoker smoking half pack per day. He was referred for stress test where he had dyspnea on exertion but no ischemic EKG changes were noticed. On follow-up is denying any symptoms. He has also not active at all and does not do any significant activities in his day-to-day life. [facility] Medical History Atherosclerotic cardiovascular disease Surgical History History of surgery on lower extremity Family History Father Alzheimer disease Diabetes Mother Diabetes Maternal Grandmother Pacemaker Heart problem Social History Alcohol intake: never Substance Use Type: Marijuana Review of Systems Const Denies weakness ENT Denies dizziness Card Denies chest pain, Denies chest pain with activity, Denies syncope, Denies rapid heart rate, Denies pedal edema, Denies edema, Denies leg edema, Denies lightheadedness, Denies palpitations, Denies dyspnea, Denies dyspnea on exertion and Denies orthopnea Resp Denies cough, Denies dyspnea and Denies dyspnea on exertion GI Denies hematochezia and Denies change in stool character Musc Denies abnormal gait, Denies muscle cramps, Denies muscle weakness, Denies numbness, Denies radiating pain into limb and Denies tingling Neuro Denies abnormal gait, Denies dizziness, Denies syncope, Denies numbness, Denies tingling and Denies weakness Endo Denies palpitations Physical Exam Vital Signs: Last Vital Signs Pulse 70 12/12/23 14:16 BP 108/60 12/12/23 14:16 BMI result Body Mass Index 23.7 GENERAL APPEARANCE: in no acute distress, pleasant. NECK: no carotid bruit, no jugular venous distention. SKIN: no suspicious lesions, warm and dry. HEART: no murmurs, regular rate and rhythm. LUNGS: clear to auscultation bilaterally. ABDOMEN: soft, nontender. EXTREMITIES: no edema. PERIPHERAL PULSES: equal. NEUROLOGIC: No gross deficits, AAO X 3 Assessment & Plan Assessment & Plan (1) Tobacco dependence: Code(s): F17.200 - Nicotine dependence, unspecified, uncomplicated (2) Cardiomyopathy: Code(s): I42.9 - Cardiomyopathy, unspecified Qualifiers: Cardiomyopathy type: ischemic Qualified Code(s): I25.5 - Ischemic cardiomyopathy (3) Atherosclerotic cardiovascular disease: Code(s): I25.10 - Atherosclerotic heart disease of [place] coronary artery without angina pectoris (4) S/P cardiac catheterization: Comment: 01/10/2023 occlusion of the proximal to mid LAD, right to left collaterals, severe OM 2 disease, 90% stenosis, distal left circumflex 65% stenosis, RCA mid 30% stenosis Code(s): Z98.890 - Other specified postprocedural states Plan Pleasant 48 gentleman who is here for follow-up. He has background history of tobacco abuse and was diagnosed with cardiomyopathy and transferred to [facility] where cardiac catheterization showed multivessel disease including RN TRAVELING of the LAD. Our plan was to do viability study but he has claustrophobia and he has not been able to do any of the studies at this point. He has been on guideline directed medical therapy and ejection fraction has improved to 40 45% very continues to have LAD territory wall motion abnormality. I explained to him that he has options of coronary artery bypass surgery versus PCI versus medical management at this point. Given the fact that we can not prove viability in the LAD territory and that he has no symptoms, I feel that referring him for CABG is quite aggressive. Having said that CABG has the best outcome with cardiomyopathy based on observational data. He will discuss with his family and decide how he wants to proceed. We will leave him on medications for now. Adding lisinopril 2.5 mg daily to his regimen. His blood pressure is not high and I have advised him that he should be very careful specially when he takes the 1st dose of medication as he can have hypotension. Thank you for allowing me to participate in the care of your patient. Please feel free to contact me if you have any questions. Orders: Orders CA echo limited Today I25.5 - Ischemic cardiomyopathy Medications: New lisinopril 2.5 mg PO DAILY 60 tabs 3RF I25.5 - Ischemic cardiomyopathy nicotine 1 patch transdermal DAILY 28 ea 1RF F17.200 - Nicotine dependence, unspecified, uncomplicated Coding Level of Care Code Est Pt Level 5 (23439) Diagnoses Tobacco dependence F17.200 Ischemic cardiomyopathy I25.5 Cardiomyopathy type: ischemic Atherosclerotic cardiovascular disease I25.10 S/P cardiac catheterization Z98.890
== END 2023-12-12 14:56 | disposition home or self-care (01) ==
PROVIDERS: PCP Internal Medicine Geriatric Medicine; Referring Provider Internal Medicine Geriatric Medicine; Visit Provider Internal Medicine Cardiovascular Disease
DX: I25.5 Ischemic cardiomyopathy (principal); I25.10 Atherosclerotic heart disease of native coronary artery without angina pectoris; Z98.61 Coronary angioplasty status; F17.200 Nicotine dependence, unspecified, uncomplicated
CPT/HCPCS: 99214

== ENCOUNTER → 2023-12-12 14:10 | Outpatient (BNVA) | payer MEDICAID, SELFPAY | PROVIDERS: PCP Internal Medicine Geriatric Medicine; Visit Provider Internal Medicine Cardiovascular Disease | DX: I25.5 Ischemic cardiomyopathy (principal); I25.10 Atherosclerotic heart disease of native coronary artery without angina pectoris; F17.200 Nicotine dependence, unspecified, uncomplicated; Z98.890 Other specified postprocedural states | CPT/HCPCS: 99212 ==

== ENCOUNTER → 2024-01-09 11:00 | Outpatient (REF) | payer MEDICAID, SELFPAY ==
--- NOTE | 2024-01-09 11:03 | CA_ITS ---
Transthoracic Echocardiogram Patient (Last, First, Middle): Vinicio Harvey, Gender: Male Date of : 1975 Age: 48 Procedure Date: 01/09/2024 Procedure Type: Transthoracic Echocardiogram Location: OP Height: 177.8 cm Weight: 77.11 kg BSA: 1.95 m2 Heart Rate: 56 bpm BP: 115 / 65 mmHg Library Customer Service Clerk: VIRY Referring MD: Kermit Decker MD Symptoms: I25.5 - Ischemic cardiomyopathy Study Quality: Adequate w/Contrast. Limited by order ECG Rhythm: Bradycardia Conclusions: - Normal left ventricular cavity size. There is mildly increased left ventricular wall thickness. The left ventricular systolic function is low normal. The visually estimated ejection fraction is between 50-55%. There is evidence of regional wall motion abnormalities. Diastolic function is normal for age. - The apical anterior and mid anteroseptal segments are hypokinetic. - The apex and apical septum segments are akinetic. Findings Procedure Information Contrast agent, definity, is being given per protocol without apparent complications. Left Ventricle Normal left ventricular cavity size. There is mildly increased left ventricular wall thickness. The left ventricular systolic function is low normal. The visually estimated ejection fraction is between 50-55%. There is evidence of regional wall motion abnormalities. Diastolic function is normal for age. Wall Motion Rest Echo Findings The apical anterior and mid anteroseptal segments are hypokinetic. The apex and apical septum segments are akinetic. Prior Study Comparison No significant change compared to prior study dated: 08/01/2023. Measurements 2D Linear Measurements IVSd: 1.27 0.6-0.9/0.6-1.0 cm LVIDd: 4.65 3.9-5.3/4.2-5.9 cm LVIDd Index: 2.38 2.4-3.2/2.2-3.1 cm/m2 LVIDs: 2.69 2.0-3.6 cm LVPWd: 1.25 0.7-1.1 cm LV Mass: 278.78 67-162/88-224 g LV Mass Index: 142.96 43-95/49-115 g/m2 LVOT Diam: 1.90 3.0+(-)1.3 cm 2D Systolic Function EF 4C: 52.20 >55% EF 2C: 49.70 >55% EF BiP: 50.10 >55% Mitral Valve MV Pk E: 0.88 MV PK A: 0.50 MV Decel Time: 224.00 E/A: 1.80 E'Lateral: 12.20 E'Medial: 10.00 E/E' Med: 8.80 E/E' Lat: 7.20 PHT: 66.00 MVA PHT: 3.33 Decel [place]: 3.92 LVOT LVOT Pk [place]: 1.03 LVOT Mn [place]: 0.69 LVOT VTI: 0.25 LVOT Pk Grad: 4.00 LVOT Mn Grad: 2.00 LVOT Diam: 1.90 LVOT Area: 2.84 Diastolic Function MV Pk E: 0.88 MV Pk A: 0.50 E/A: 1.80 E'Medial: 10.00 E/E' Med: 8.80 E' Laterial: 12.20 E/E' Lat: 7.20 Updated in Other Vendor System with Status of Final Kermit Decker MD electronically signed on 01/09/2024 1:19:12 PM with status of Final
== END ==
LOC: HO.CARD 11:00
PROVIDERS: Visit Provider Internal Medicine Cardiovascular Disease
DX: I25.5 Ischemic cardiomyopathy (principal)
CPT/HCPCS: 93308; Q9957

== ENCOUNTER → 2024-01-09 11:03 | Outpatient (BNV) | payer MEDICAID, SELFPAY | PROVIDERS: Visit Provider Internal Medicine Cardiovascular Disease | DX: I25.5 Ischemic cardiomyopathy (principal) | CPT/HCPCS: 93308 ==

== ENCOUNTER 2024-03-22 13:52 | Outpatient (REF) | payer MEDICAID, SELFPAY ==
[2024-03-22 16:01] LABS: MANUAL DIFF FLAG NO
[2024-03-22 16:03] LABS: Basophils Absolute Auto 0.1 X10*3/uL (0.0-0.2); Basophils Percent Auto 0.7 % (0-2); Eosinophils Absolute Auto 0.1 X10*3/uL (0.0-0.4); Eosinophils Percent Auto 1.2 % (0-4); Hematocrit 32.3 % (42.0-52.0); Hemoglobin 10.6 g/dl (14.0-18.0); Imm Gran Abs Auto 0.06 X10*3/uL (0.00-0.03); Imm Gran Pct Auto 0.5 % (0.0-0.4); Lymphocytes Absolute Auto 1.4 X10*3/uL (1.2-4.9); Lymphocytes Percent Auto 12.7 % (20-40); Mean Corpuscular HGB Conc 32.8 g/dl (31.0-36.0); Mean Corpuscular Hemoglobin 30.1 pg (27.0-33.0); Mean Corpuscular Volume 91.8 fL (80.0-98.0); Mean Platelet Volume 11.7 fL (9.4-12.4); Monocytes Absolute Auto 0.5 X10*3/uL (0.1-1.2); Monocytes Percent Auto 4.6 % (2-11); Neutrophils Absolute Auto 9.1 x10*3/uL (2.0-8.3); Neutrophils Percent Auto 80.3 % (45-73); Platelet Count 226 X10*3/uL (160-400); Red Blood Count 3.52 X10*6/uL (4.60-5.80); Red Cell Distribution Width 12.8 % (11.0-16.0); White Blood Count 11.3 X10*3/uL (4.8-10.8)
[2024-03-22 16:20] LABS: Estimated Average Glucose 166 mg/dL; Hemoglobin A1c % 7.4 % (<6.0)
[2024-03-22 16:33] LABS: Alanine Aminotransferase 21 U/L (0-40); Albumin Level 4.1 g/dL (3.5-5.0); Alkaline Phosphatase 78 U/L (39-117); Anion Gap 13 (12-20); Aspartate Amino Transferase 20 U/L (5-37); Bilirubin Direct 0.2 mg/dL (0.0-0.5); Bilirubin Total 0.3 mg/dL (0.0-1.0); Blood Urea Nitrogen 29 mg/dL (9-16); Calcium 9.3 mg/dL (8.4-10.2); Carbon Dioxide 25 mmol/L (22-29); Chloride 107 mmol/L (96-108); Cholesterol 91 mg/dL (<200); Estimated Glomerular Filt Rate 51; Glucose Random 207 mg/dL (60-115); HDL Cholesterol 37 mg/dL (>40); LDL Cholesterol Calculated 42 mg/dL (<100); Potassium 4.8 mmol/L (3.3-5.1); Sodium 140 mmol/L (135-145); Total Protein 7.4 g/dL (6.5-8.0); Triglycerides 61 mg/dL (<150)
[2024-03-22 16:50] LABS: Free T4 (Free Thyroxine) 0.94 ng/dL (0.71-1.85); Thyroid Stimulating Hormone 0.77 uIU/mL (0.32-4.0); Vitamin D 25-OH Total 34.7 ng/mL (>30)
== END 2024-03-22 13:53 | disposition home or self-care (01) ==
LOC: HO.HHCL 13:52
PROVIDERS: Visit Provider Family Medicine
DX: R22.1 Localized swelling, mass and lump, neck (principal)
CPT/HCPCS: 36415; 80048; 80061; 80076; 82306; 83036; 84439; 84443; 85025

== ENCOUNTER 2024-03-23 12:16 | Outpatient (REF) | payer MEDICAID, SELFPAY ==
--- NOTE | ~2024-03-23 | CT_ITS ---
EXAMINATION: CT SOFT TISSUE NECK WITH CONTRAST CLINICAL INFORMATION: Right neck mass for 2 weeks. COMPARISON: None available. TECHNIQUE: Following the intravenous administration of 100 mL of Omnipaque 350 intravenous contrast, helical imaging was performed in the axial plane following the administration of 60 mL of Omnipaque 350 intravenous contrast without complication. This CT examination was performed using dose optimization techniques as appropriate, variously including the following: *Automated exposure control *Adjustment of mA and/or kV according to patient size (this includes techniques or standardized protocols for targeted exams where dose is matched to indication/reason for exam; i.e. extremities or head) *Use of iterative reconstruction technique FINDINGS: Acute sialoadenitis of the right subarticular gland. The right submandibular gland is enlarged and heterogeneous in attenuation with several calculi measuring up to 6 mm along its medial border with associated intraglandular ductal dilatation. There are inflammatory/cellulitic changes within the right submandibular space and within the submental space. No abscess. The thyroid gland, the left submandibular gland, and the parotid glands are unremarkable. Orbital soft tissues are unremarkable. The cervical venous system is widely patent. Cervical arterial vasculature is widely patent. The there are prominent jugular chain and right submandibular region lymph nodes that are most likely reactive. There is multilevel cervical spondylosis that is greatest at C6-C7. No acute nor suspicious osseous findings. There is a retention cyst within the left maxillary sinus and the remaining paranasal sinuses are well-aerated. Mastoid air cells are well aerated. The imaged upper lungs and imaged upper mediastinum are unremarkable. The partially imaged intracranial compartment is unremarkable. CT/CT soft tissue neck w IV con IMPRESSION: Acute sialoadenitis of the right submandibular gland. The right submandibular gland is enlarged and heterogeneous in attenuation with several calculi measuring up to 6 mm along its medial border with associated intraglandular ductal dilatation. There are inflammatory/cellulitic changes within the right submandibular space and within the submental space. No abscess. Likely reactive jugular chain and right submandibular region lymph nodes.
[2024-03-23] MEDS: iohexoL 350 MG/ML 100 ML INFUS..BTL 60 ML IV (13:06)
== END 2024-03-23 12:17 | disposition home or self-care (01) ==
LOC: HO.CT 12:16
PROVIDERS: PCP Internal Medicine Geriatric Medicine; Visit Provider Family Medicine
DX: R22.1 Localized swelling, mass and lump, neck (principal)
CPT/HCPCS: 70491; Q9967

== ENCOUNTER 2024-03-26 13:15 | Outpatient (AMB) | payer MEDICAID, SELFPAY ==
[2024-03-26 13:24] VITALS: BP 120/64; PULSE 64; BMI 21.8
--- NOTE | 2024-03-26 13:24 | A.OFFVIS_ITS ---
Vital Signs 03/26/24 13:24 Height 5 ft 10 in Weight 152 lb 1.903 oz BMI 21.8 BP 120/64 Blood Pressure Location Lt brachial Position Sitting Pulse 64 Pulse Source Monitor Intake Visit Reasons: 3 mth f/up echo Biodiesel Production Technician Required: Yes Biodiesel Production Technician Name: [id number]/gerri/central [place] Accompanied by: Spouse Allergies No Known Allergies Allergy (Verified 12/12/23 14:28) Medication List - Last Reconciled 03/26/24 by Kermit Decker MD acetaminophen 1,000 mg (2 x 500 mg) PO QID PRN amoxicillin 500 mg PO TID aspirin 81 mg PO DAILY atorvastatin 80 mg PO DAILY dapagliflozin propanediol (Farxiga) 10 mg PO DAILY lisinopril 2.5 mg PO DAILY metformin 500 mg PO BID metoprolol succinate ER 25 mg PO DAILY nicotine 1 patch transdermal DAILY HPI Comments Details: 48-year-old gentleman who is here for follow-up. He was diagnosed with cardiomyopathy and was transferred to [facility] where he underwent cardiac catheterization. 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 He was started on guideline directed medical therapy. Our plan was to do a cardiac MRI. We referred him for cardiac MRI but he was unable to do it because of significant claustrophobia and anxiety. He also could not do nuclear viability study. On medications his ejection fraction has improved from severely reduced to 40-45% at this point but he continues to have akinesis of the LAD territory. Clinically he has been stable and has no chest discomfort. He has an active smoker smoking half pack per day. He was referred for stress test where he had dyspnea on exertion but no ischemic EKG changes were noticed. On follow-up is denying any symptoms. He has also not active at all and does not do any significant activities in his day-to-day life. 03/26/24: He is here for follow-up. He is smoking half pack per day. He is complaining of shortness of breath with activity. During her stress test he also had some dyspnea with ECG changes. Echocardiography has shown EF 50 55% with apical akinesis. We discussed about ECHO and his current symptoms. No chest discomfort clearly. Clinically euvolemic. He has not been taking lisinopril for few weeks because he ran out. [facility] Medical History Atherosclerotic cardiovascular disease Surgical History History of surgery on lower extremity Family History Father Alzheimer disease Diabetes Mother Diabetes Maternal Grandmother Pacemaker Heart problem Social History Alcohol intake: never Substance Use Type: Marijuana Review of Systems Const Denies chills, Denies fatigue, Denies fever(s), Denies frequent falls, Denies weakness, Denies weight gain and Denies weight loss ENT Denies dizziness Card Denies chest pain, Denies leg edema, Denies lightheadedness, Denies palpitations, Denies dyspnea and Denies dyspnea on exertion Resp Denies cough, Denies dyspnea and Denies dyspnea on exertion GI Denies hematochezia Musc Denies abnormal gait, Denies muscle weakness, Denies numbness, Denies radiating pain into limb and Denies tingling Neuro Denies abnormal gait, Denies dizziness, Denies frequent falls, Denies numbness, Denies tingling and Denies weakness Endo Denies fatigue and Denies palpitations Physical Exam Vital Signs: Last Vital Signs Pulse 64 03/26/24 13:24 BP 120/64 03/26/24 13:24 BMI result Body Mass Index 21.8 GENERAL APPEARANCE: in no acute distress, pleasant. NECK: no carotid bruit, no jugular venous distention. SKIN: no suspicious lesions, warm and dry. HEART: no murmurs, regular rate and rhythm. LUNGS: clear to auscultation bilaterally. ABDOMEN: soft, nontender. EXTREMITIES: no edema. PERIPHERAL PULSES: equal. NEUROLOGIC: No gross deficits, AAO X 3 Office Procedures EKG Details: Sinus rhythm 84 beats per minute, right axis deviation, anterior infarct, QTC 404 milliseconds. [id number], Complete Assessment & Plan Assessment & Plan (1) Cardiomyopathy: Code(s): I42.9 - Cardiomyopathy, unspecified Category: Medical Qualifiers: Cardiomyopathy type: ischemic Qualified Code(s): I25.5 - Ischemic cardiomyopathy (2) Atherosclerotic cardiovascular disease: Code(s): I25.10 - Atherosclerotic heart disease of [place] coronary artery without angina pectoris Category: Medical (3) Hyperlipidemia: Code(s): E78.5 - Hyperlipidemia, unspecified Category: Medical Qualifiers: Hyperlipidemia type: unspecified Qualified Code(s): E78.5 - Hyperlipidemia, unspecified (4) Tobacco dependence: Code(s): F17.200 - Nicotine dependence, unspecified, uncomplicated Category: Medical (5) S/P cardiac catheterization: Comment: 01/10/2023 occlusion of the proximal to mid LAD, right to left collaterals, severe OM 2 disease, 90% stenosis, distal left circumflex 65% stenosis, RCA mid 30% stenosis Code(s): Z98.890 - Other specified postprocedural states Category: Surgical Plan Pleasant 48 gentleman who is here for follow-up. He has background history of tobacco abuse and was diagnosed with cardiomyopathy and transferred to [facility] where cardiac catheterization showed multivessel disease including MEDICAL ADMINISTRATIVE ASSISTANT of the LAD. Our plan was to do viability study but he has claustrophobia and he has not been able to do any of the studies at this point. He has been on guideline directed medical therapy and ejection fraction has improved to 50-55% with regional wall motion abnormality in the LAD territory. He underwent exercise stress test where he had dyspnea with activity. He did have some ST changes concerning for ischemia. He continues to have dyspnea and vague left-sided chest discomfort with activity. I have advised him to do pulmonary function testing. If PFTs show obvious lung disease as cause for dyspnea then we will pursue that otherwise I think we may have to discuss revascularization with him. Overall he has been quite stable and has been doing reasonably well with medications. I have advised him to quit smoking. I will send script for nicotine patch. Thank you for allowing me to participate in the care of your patient. Please feel free to contact me if you have any questions. Orders: Orders PFT pulmonary function test Today R06.09 - Other forms of dyspnea Medications: Refilled nicotine 1 patch transdermal DAILY 28 ea 1RF F17.200 - Nicotine dependence, unspecified, uncomplicated lisinopril 2.5 mg PO DAILY 90 tabs 4RF I25.5 - Ischemic cardiomyopathy Coding Level of Care Code Est Pt Level 4 (67178) Diagnoses Ischemic cardiomyopathy I25.5 Cardiomyopathy type: ischemic Atherosclerotic cardiovascular disease I25.10 Hyperlipidemia, unspecified hyperlipidemia type E78.5 Hyperlipidemia type: unspecified Tobacco dependence F17.200 S/P cardiac catheterization Z98.890 CPT Codes EKG - CPT: 26281-[id number], Complete ([id number])
== END 2024-03-26 14:04 | disposition home or self-care (01) ==
PROVIDERS: PCP Internal Medicine Geriatric Medicine; Referring Provider Internal Medicine Geriatric Medicine; Visit Provider Internal Medicine Cardiovascular Disease
DX: I25.5 Ischemic cardiomyopathy (principal); I25.10 Atherosclerotic heart disease of native coronary artery without angina pectoris; E78.5 Hyperlipidemia, unspecified; F17.200 Nicotine dependence, unspecified, uncomplicated; Z98.890 Other specified postprocedural states
CPT/HCPCS: 93010; 99214

== ENCOUNTER → 2024-03-26 13:15 | Outpatient (BNVA) | payer MEDICAID, SELFPAY | PROVIDERS: PCP Internal Medicine Geriatric Medicine; Visit Provider Internal Medicine Cardiovascular Disease | DX: I25.5 Ischemic cardiomyopathy (principal); I25.10 Atherosclerotic heart disease of native coronary artery without angina pectoris; E78.5 Hyperlipidemia, unspecified; F17.200 Nicotine dependence, unspecified, uncomplicated | CPT/HCPCS: 93005; 99212 ==

== ENCOUNTER 2024-06-18 13:52 | Outpatient (REF) | payer MEDICAID, SELFPAY ==
[2024-06-18 16:09] LABS: Hematocrit 35.3 % (42.0-52.0); Hemoglobin 11.6 g/dl (14.0-18.0); Mean Corpuscular HGB Conc 32.9 g/dl (31.0-36.0); Mean Corpuscular Hemoglobin 30.3 pg (27.0-33.0); Mean Corpuscular Volume 92.2 fL (80.0-98.0); Mean Platelet Volume 11.6 fL (9.4-12.4); Platelet Count 183 X10*3/uL (160-400); Red Blood Count 3.83 X10*6/uL (4.60-5.80); Red Cell Distribution Width 13.5 % (11.0-16.0); White Blood Count 8.7 X10*3/uL (4.8-10.8)
[2024-06-18 16:16] LABS: INTERNATIONAL NORM RATIO 0.9 (0.9-1.1); Prothrombin Time 10.9 SEC (11.1-13.3)
[2024-06-18 16:25] LABS: B Type Natriuretic Peptide 60 pg/mL (<100)
[2024-06-18 17:10] LABS: Anion Gap 13 (12-20); Blood Urea Nitrogen 32 mg/dL (9-16); Calcium 10.2 mg/dL (8.4-10.2); Carbon Dioxide 25 mmol/L (22-29); Chloride 109 mmol/L (96-108); Cholesterol 134 mg/dL (<200); Estimated Glomerular Filt Rate 45; Glucose Random 96 mg/dL (60-115); HDL Cholesterol 40 mg/dL (>40); LDL Cholesterol Calculated 68 mg/dL (<100); Potassium 6.3 mmol/L (3.3-5.1); Sodium 141 mmol/L (135-145); Triglycerides 131 mg/dL (<150)
== END 2024-06-18 13:53 | disposition home or self-care (01) ==
LOC: HO.LAB 13:52
PROVIDERS: PCP Internal Medicine Geriatric Medicine; Visit Provider Internal Medicine Cardiovascular Disease
DX: I25.5 Ischemic cardiomyopathy (principal); E78.5 Hyperlipidemia, unspecified; F17.200 Nicotine dependence, unspecified, uncomplicated; I25.118 Atherosclerotic heart disease of native coronary artery with other forms of angina pectoris
CPT/HCPCS: 36415; 80048; 80061; 83880; 85027; 85610; 99212

== ENCOUNTER 2024-06-18 13:52 | Outpatient (AMB) | payer MEDICAID, SELFPAY ==
[2024-06-18 13:55] VITALS: BP 120/62; PULSE 60; BMI 22.8
--- NOTE | 2024-06-18 13:55 | MHC.OFFVIS ---
Vital Signs 06/18/24 13:55 Height 5 ft 10 in Weight 159 lb 2.78 oz BMI 22.8 BP 120/62 Blood Pressure Location Lt brachial Position Sitting Pulse 60 Pulse Source Pulse Oximeter Intake Visit Reasons: 2-3 mth f/up s/p PFT @ [facility] Environmental Geologist Required: No Accompanied by: Self / Same As Patient Allergies No Known Allergies Allergy (Verified 12/12/23 14:28) Medication List - Last Reconciled 06/18/24 by Kermit Decker MD acetaminophen 1,000 mg (2 x 500 mg) PO QID PRN amoxicillin 500 mg PO TID aspirin 81 mg PO DAILY atorvastatin 80 mg PO DAILY dapagliflozin propanediol (Farxiga) 10 mg PO DAILY lisinopril 2.5 mg PO DAILY metformin 500 mg PO BID metoprolol succinate ER 25 mg PO DAILY nicotine 1 patch transdermal DAILY HPI Comments Details: 48-year-old gentleman who is here for follow-up. He was diagnosed with cardiomyopathy and was transferred to [facility] where he underwent cardiac catheterization. 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 He was started on guideline directed medical therapy. Our plan was to do a cardiac MRI. We referred him for cardiac MRI but he was unable to do it because of significant claustrophobia and anxiety. He also could not do nuclear viability study. On medications his ejection fraction has improved from severely reduced to 40-45% at this point but he continues to have akinesis of the LAD territory. Clinically he has been stable and has no chest discomfort. He has an active smoker smoking half pack per day. He was referred for stress test where he had dyspnea on exertion but no ischemic EKG changes were noticed. On follow-up is denying any symptoms. He has also not active at all and does not do any significant activities in his day-to-day life. 03/26/24: He is here for follow-up. He is smoking half pack per day. He is complaining of shortness of breath with activity. During her stress test he also had some dyspnea with ECG changes. Echocardiography has shown EF 50 55% with apical akinesis. We discussed about ECHO and his current symptoms. No chest discomfort clearly. Clinically euvolemic. He has not been taking lisinopril for few weeks because he ran out. 06/18/2024: He is here for follow-up. He continues to smoke. He has dyspnea and is able to walk close to 1 block at this point. He also has been experiencing left-sided pressure-like chest discomfort. Taking medications regularly. Once again we discussed in detail about smoking cessation. [facility] Medical History Atherosclerotic cardiovascular disease Surgical History History of surgery on lower extremity Family History Father Alzheimer disease Diabetes Mother Diabetes Maternal Grandmother Pacemaker Heart problem Social History Alcohol intake: never Substance Use Type: Marijuana Review of Systems Const Denies chills, Denies fatigue, Denies fever(s), Denies frequent falls, Denies weakness, Denies weight gain and Denies weight loss ENT Denies dizziness Card Denies chest pain, Denies leg edema, Denies lightheadedness, Denies palpitations, Denies dyspnea and Denies dyspnea on exertion Resp Denies cough, Denies dyspnea and Denies dyspnea on exertion GI Denies hematochezia Musc Denies abnormal gait, Denies muscle weakness, Denies numbness, Denies radiating pain into limb and Denies tingling Neuro Denies abnormal gait, Denies dizziness, Denies frequent falls, Denies numbness, Denies tingling and Denies weakness Endo Denies fatigue and Denies palpitations Physical Exam Vital Signs: Last Vital Signs Pulse 60 06/18/24 13:55 BP 120/62 06/18/24 13:55 BMI result Body Mass Index 22.8 GENERAL APPEARANCE: in no acute distress, pleasant. NECK: no carotid bruit, no jugular venous distention. SKIN: no suspicious lesions, warm and dry. HEART: no murmurs, regular rate and rhythm. LUNGS: clear to auscultation bilaterally. ABDOMEN: soft, nontender. EXTREMITIES: no edema. PERIPHERAL PULSES: equal. NEUROLOGIC: No gross deficits, AAO X 3 Assessment & Plan Assessment & Plan (1) Cardiomyopathy: Code(s): I42.9 - Cardiomyopathy, unspecified Category: Medical Qualifiers: Cardiomyopathy type: ischemic Qualified Code(s): I25.5 - Ischemic cardiomyopathy (2) Atherosclerotic cardiovascular disease: Code(s): I25.10 - Atherosclerotic heart disease of [place] coronary artery without angina pectoris Category: Medical (3) Stable angina: Code(s): I20.89 - Other forms of angina pectoris Category: Medical Plan Pleasant 48 year gentleman who is here for follow-up. He has known history of cardiomyopathy for which he underwent cardiac catheterization showing DATA SCIENCES DIRECTOR of LAD with fitte-ur-elug collaterals. He also had a moderate circumflex stenosis. His LV function was severely reduced. He was started on guideline directed medical therapy and has been on dapagliflozin, lisinopril and metoprolol succinate. His ejection fraction has improved 55%. He continues to have wall motion in the LAD territory and has dyspnea as well as chest discomfort with activities. We discussed about treatment options at this stage. I have explained to him that he needs to stop smoking completely if he wishes to have a durable treatment for his coronary disease. We will repeat diagnostic angiogram to reassess the anatomy and potentially revascularize the LAD territory. If anatomy is significantly worse than before then we will consider referral for coronary artery bypass surgery. He understands and is agreeable. Continue same medications currently. Adding isosorbide mononitrate 30 mg daily. Thank you for allowing me to participate in the care of your patient. Please feel free to contact me if you have any questions. Orders: Orders Cardiac Cath LT Diagnostic Today I25.5 - Ischemic cardiomyopathy Basic Metabolic Panel Today I25.5 - Ischemic cardiomyopathy Complete Blood Count no Diff Today I25.5 - Ischemic cardiomyopathy B Type Natriuretic Peptide Today I25.5 - Ischemic cardiomyopathy Prothrombin Time INR Today I25.5 - Ischemic cardiomyopathy Medications: New isosorbide mononitrate ER 30 mg PO DAILY 60 tabs 3RF I20.89 - Other forms of angina pectoris Coding Level of Care Code Est Pt Level 5 (94786) Diagnoses Ischemic cardiomyopathy I25.5 Cardiomyopathy type: ischemic Atherosclerotic cardiovascular disease I25.10 Stable angina I20.89
== END 2024-06-18 14:38 | disposition home or self-care (01) ==
PROVIDERS: PCP Internal Medicine Geriatric Medicine; Referring Provider Internal Medicine Geriatric Medicine; Visit Provider Internal Medicine Cardiovascular Disease
DX: I25.118 Atherosclerotic heart disease of native coronary artery with other forms of angina pectoris (principal); I25.5 Ischemic cardiomyopathy
CPT/HCPCS: 99214

== ENCOUNTER 2024-06-20 10:22 | Outpatient (REF) | payer MEDICAID, SELFPAY ==
[2024-06-20 11:48] LABS: Anion Gap 11 (12-20); Blood Urea Nitrogen 31 mg/dL (9-16); Calcium 9.7 mg/dL (8.4-10.2); Carbon Dioxide 24 mmol/L (22-29); Chloride 110 mmol/L (96-108); Estimated Glomerular Filt Rate 46; Glucose Random 159 mg/dL (60-115); Potassium 5.7 mmol/L (3.3-5.1); Sodium 139 mmol/L (135-145)
== END 2024-06-20 10:23 | disposition home or self-care (01) ==
LOC: HO.LAB 10:22
PROVIDERS: PCP Internal Medicine Geriatric Medicine; Visit Provider Internal Medicine Cardiovascular Disease
DX: E87.5 Hyperkalemia (principal)
CPT/HCPCS: 36415; 80048

== ENCOUNTER → 2024-07-10 23:59 | Outpatient (BNV) | payer MEDICAID, SELFPAY | PROVIDERS: PCP Internal Medicine Geriatric Medicine; Visit Provider Internal Medicine Cardiovascular Disease | DX: I42.9 Cardiomyopathy, unspecified (principal); R06.02 Shortness of breath; I25.82 Chronic total occlusion of coronary artery | CPT/HCPCS: 92928; 92978; 93458; 99152 ==

== ENCOUNTER 2024-07-26 12:53 | Outpatient (AMB) | payer MEDICAID, SELFPAY ==
[2024-07-26 13:15] VITALS: BP 120/62; PULSE 62; BMI 23.7
--- NOTE | 2024-07-26 13:15 | MHC.OFFVIS ---
Vital Signs 07/26/24 13:15 Height 5 ft 10 in Weight 164 lb 14.492 oz BMI 23.7 BP 120/62 Blood Pressure Location Lt brachial Position Sitting Pulse 62 Pulse Source Pulse Oximeter Intake Visit Reasons: 2 wk s/p cath Front Office Associate Required: No Dolly Driver: Dolly Driver Present Allergies No Known Allergies Allergy (Verified 07/26/24 13:18) Medication List - Last Reconciled 07/26/24 by Kiara Garnett NP-C aspirin 81 mg PO DAILY atorvastatin 80 mg PO DAILY dapagliflozin propanediol (Farxiga) 10 mg PO DAILY duloxetine 30 mg PO DAILY isosorbide mononitrate ER 30 mg PO DAILY metformin 500 mg PO BID metoprolol succinate ER 25 mg PO DAILY HPI HPI 2 wk s/p cath: Details: Vinicio is a 48-year-old male with past medical history of hyperlipidemia, cardiomyopathy, coronary artery disease with CONCERT OR LECTURE HALL MANAGER of the LAD with right to left collaterals who continued to have symptoms and cardiomyopathy in spite of med management. He underwent cardiac catheterization with stenting of the mid LAD. He now presents for follow-up. Today he reports he has been doing well since his procedure. He reports that he has increased energy, improved breathing and he has not been having any chest discomfort since the stent placement. He has been doing only light physical activity. He has not started cardiac rehab yet. He has no concerning shortness of breath, PND, orthopnea or edema. No lightheadedness, presyncope, syncope, falls. He is taking meds as directed. No bleeding issues reported. He quit smoking on the day of his cardiac catheterization procedure. His significant other is present. Taking all meds as directed. [facility] Medical History Atherosclerotic cardiovascular disease Surgical History (Updated 07/26/24 @ 17:56 by Kiara Garnett, CHRISTIANO-C) S/P cardiac catheterization History of surgery on lower extremity Family History Father Alzheimer disease Diabetes Mother Diabetes Maternal Grandmother Pacemaker Heart problem Social History Alcohol intake: never Substance Use Type: Marijuana Review of Systems Const All systems reviewed & are unremarkable except as noted in HPI and below Card Denies no additional complaints, Denies chest pain, Denies chest pain at rest, Denies chest pain with activity, Denies rapid heart rate, Denies leg edema, Denies dyspnea, Denies dyspnea on exertion and Denies orthopnea Resp Denies dyspnea and Denies dyspnea on exertion GI Denies no additional complaints Musc Denies no additional complaints Physical Exam Vital Signs: Last Vital Signs Pulse 62 07/26/24 13:15 BP 120/62 07/26/24 13:15 BMI result Body Mass Index 23.7 Const General: cooperative, healthy appearing, comfortable and no acute distress Orientation/consciousness: patient oriented x3 Neck Neck: Yes normal visual inspection Resp Effort & Inspection: normal respiratory effort Auscultation: clear to auscultation bilaterally, no crackles, no rales, no rhonchi and no wheezes Cardio Jugular venous distension: no JVD Rate: regular rate Rhythm: regular rhythm Heart sounds: S1 normal heart sound present, S2 normal heart sound present, no murmurs and no rubs Neuro General: patient oriented x3 Extrem Other: right radial cath site well healed, palpable radial pulse, right hand assessment normal General: Yes normal to inspection Psych Appearance: grossly normal Mental Status: mental status grossly normal Speech and movement: Normal speech and movement present Assessment & Plan Assessment & Plan (1) Atherosclerotic cardiovascular disease: Code(s): I25.10 - Atherosclerotic heart disease of [place] coronary artery without angina pectoris Category: Medical Plan: Known history of CAD with cardiac catheterization 01/05/2023 showing proximal LAD CONCERT OR LECTURE HALL MANAGER severe OM2 disease. Plan was for him to have a viability study however he was not able to complete a cardiac MRI due to claustrophobia. He had been started on med management and did have an improvement of his EF up to 40-45% but continued to have akinesis in the LAD territory. He had an exercise stress test which showed shortness of breath with exertion but no EKG changes noted. On follow-up visit he reported shortness of breath with walking and left-sided chest pressure. He underwent cardiac catheterization on 07/10/2024 and underwent stenting of the proximal to mid LAD. Today he reports that he has been feeling better since the procedure. He describes more energy and his breathing has improved. He has not had any recurrent chest discomfort. He quit smoking on the day of the procedure and was applauded on this. His right radial catheterization site is feeling well. Will have him continue aspirin indefinitely. Continue Brilinta 90 mg b.i.d. uninterrupted for at least 1 year. Continue isosorbide, metoprolol, high-dose atorvastatin. Will plan for a repeat limited echocardiogram in a few months to reassess EF and wall motion. Start cardiac rehab. Cardiology follow-up 3 months, sooner if needed. (2) S/P cardiac cath: Comment: 07/10/2024, left main normal, lad mid 100% stenosis, proximal 70% stenosis, left circumflex mid moderate stenosis, om 2 mid 90% stenosis, small-vessel, RCA minimal irregularities Code(s): Z98.890 - Other specified postprocedural states Category: Surgical Plan: As above (3) S/P cardiac catheterization: Comment: 01/10/2023 occlusion of the proximal to mid LAD, right to left collaterals, severe OM 2 disease, 90% stenosis, distal left circumflex 65% stenosis, RCA mid 30% stenosis Code(s): Z98.890 - Other specified postprocedural states Category: Surgical Plan: As above (4) ORTIZ (dyspnea on exertion): Code(s): R06.09 - Other forms of dyspnea Category: Medical Plan: Improved post catheterization and stenting (5) Cardiomyopathy: Code(s): I42.9 - Cardiomyopathy, unspecified Category: Medical Qualifiers: Cardiomyopathy type: ischemic Qualified Code(s): I25.5 - Ischemic cardiomyopathy Plan: Last echo done 01/09/2024 showing EF 50-55%, apical anterior mid anterior septum hypokinetic, apex and apical septum akinetic. Limited echo being ordered as above Plan Time spent on chart review, documentation, interview and assessment Orders: Orders CA Echo Limited 10/08/24 I25.5 - Ischemic cardiomyopathy Coding Level of Care Code Est Pt Level 4 (27877) Complex EM visit Add On G2211 Diagnoses Atherosclerotic cardiovascular disease I25.10 S/P cardiac cath Z98.890 ORTIZ (dyspnea on exertion) R06.09 Ischemic cardiomyopathy I25.5 Cardiomyopathy type: ischemic Time Spent (min) 30
== END 2024-07-26 13:41 | disposition home or self-care (01) ==
PROVIDERS: PCP Internal Medicine Geriatric Medicine; Visit Provider Nurse Practitioner Family
DX: I25.10 Atherosclerotic heart disease of native coronary artery without angina pectoris (principal); Z98.890 Other specified postprocedural states; R06.09 Other forms of dyspnea; I25.5 Ischemic cardiomyopathy
CPT/HCPCS: 99214

== ENCOUNTER → 2024-07-26 12:53 | Outpatient (BNVA) | payer MEDICAID, SELFPAY | PROVIDERS: PCP Internal Medicine Geriatric Medicine; Visit Provider Nurse Practitioner Family | DX: I25.10 Atherosclerotic heart disease of native coronary artery without angina pectoris (principal); I25.5 Ischemic cardiomyopathy; E78.5 Hyperlipidemia, unspecified; R06.09 Other forms of dyspnea; Z87.891 Personal history of nicotine dependence; Z98.890 Other specified postprocedural states | CPT/HCPCS: 99212 ==

== ENCOUNTER → 2024-10-10 10:56 | Outpatient (REF) | payer MEDICAID, SELFPAY ==
--- NOTE | 2024-10-10 11:02 | CA_ITS ---
Transthoracic Echocardiogram Patient (Last, First, Middle): Vinicio Harvey, Gender: Male Date of : 1975 Age: 49 Procedure Date: 10/10/2024 Procedure Type: Transthoracic Echocardiogram Location: OP Height: 177.8 cm Weight: 77.11 kg BSA: 1.95 m2 Heart Rate: bpm BP: 126 / 80 mmHg Senior Advisor: KORTNEY Referring MD: Kiara Garnett SOFTWARE DEVELOPER MID LEVEL-C Symptoms: I25.5 - Ischemic cardiomyopathy Study Quality: Adequate, contrast ECG Rhythm: Sinus Conclusions: - The left ventricular systolic function is mildly decreased. The calculated ejection fraction is 51% by biplane method. - The apex and apical septum segments are akinetic. - The mid anteroseptal segment is hypokinetic. Findings Procedure Information Contrast agent, definity, is being given per protocol without apparent complications. Left Ventricle Normal left ventricular cavity size. There is normal left ventricular wall thickness. The left ventricular systolic function is mildly decreased. The calculated ejection fraction is 51% by biplane method. There is evidence of regional wall motion abnormalities. Wall Motion Rest Echo Findings The mid anteroseptal segment is hypokinetic. The apex and apical septum segments are akinetic. Venous The inferior vena cava is normal in size and collapses greater than 50% with inspiration. Prior Study Comparison No significant change compared to prior study dated: 01/09/2024. Measurements 2D Linear Measurements IVSd: 0.86 0.6-0.9/0.6-1.0 cm LVIDd: 5.13 3.9-5.3/4.2-5.9 cm LVIDd Index: 2.63 2.4-3.2/2.2-3.1 cm/m2 LVIDs: 3.15 2.0-3.6 cm LVPWd: 0.92 0.7-1.1 cm LA Diam: 3.40 2.7-3.8/3.0-4.0 cm LAIDs Index: 1.74 1.5-2.3 cm/m2 LV Mass: 202.73 67-162/88-224 g LV Mass Index: 103.96 43-95/49-115 g/m2 LVOT Diam: 2.10 3.0+(-)1.3 cm 2D Systolic Function EF 4C: 56.70 >55% EF 2C: 44.10 >55% EF BiP: 50.70 >55% Mitral Valve MV Pk E: 0.91 MV PK A: 0.69 MV Decel Time: 231.00 E/A: 1.30 E'Lateral: 12.60 E'Medial: 9.14 E/E' Med: 10.00 E/E' Lat: 7.20 PHT: 68.00 MVA PHT: 3.24 Decel [place]: 3.95 LVOT LVOT Pk [place]: 1.13 LVOT Mn [place]: 0.83 LVOT VTI: 0.27 LVOT Pk Grad: 5.00 LVOT Mn Grad: 3.00 LVOT Diam: 2.10 LVOT Area: 3.46 Diastolic Function MV Pk E: 0.91 MV Pk A: 0.69 E/A: 1.30 E'Medial: 9.14 E/E' Med: 10.00 E' Laterial: 12.60 E/E' Lat: 7.20 Tricuspid Valve RA Press: 3.00 Updated in Other Vendor System with Status of Final Clive Felipe MD electronically signed on 10/13/2024 11:08:27 AM with status of Final
== END ==
LOC: HO.CARD 10:56
PROVIDERS: PCP Internal Medicine Geriatric Medicine; Visit Provider Nurse Practitioner Family
DX: I25.5 Ischemic cardiomyopathy (principal)
CPT/HCPCS: 93308; Q9957

== ENCOUNTER → 2024-10-10 11:02 | Outpatient (BNV) | payer MEDICAID, SELFPAY | PROVIDERS: PCP Internal Medicine Geriatric Medicine; Visit Provider Internal Medicine | DX: I25.5 Ischemic cardiomyopathy (principal); R93.1 Abnormal findings on diagnostic imaging of heart and coronary circulation | CPT/HCPCS: 93308; 93321 ==

== ENCOUNTER 2024-10-29 13:22 | Outpatient (AMB) | payer MEDICAID, SELFPAY ==
[2024-10-29 13:39] VITALS: BP 90/62; PULSE 71; BMI 24.8
--- NOTE | 2024-10-29 13:39 | MHC.OFFVIS ---
Vital Signs 10/29/24 13:39 Height 5 ft 10 in Weight 172 lb 13.478 oz BMI 24.8 BP 90/62 Blood Pressure Location Lt brachial Position Sitting Pulse 71 Pulse Source Pulse Oximeter Intake Visit Reasons: 3m follow up Obiee Consultant Required: Yes Obiee Consultant Language: Machine Iii Coremaker Name: chasity carter [id number] Business Operations Analyst: Business Operations Analyst Present Allergies No Known Allergies Allergy (Verified 10/29/24 13:41) Medication List - Last Reconciled 10/29/24 by Kiara Garnett NP-C aspirin 81 mg PO DAILY atorvastatin 80 mg PO DAILY dapagliflozin propanediol (Farxiga) 10 mg PO DAILY duloxetine 30 mg PO DAILY isosorbide mononitrate ER 30 mg PO DAILY metformin 500 mg PO BID metoprolol succinate ER 25 mg PO DAILY ticagrelor (Brilinta) 90 mg PO BID HPI HPI 3m follow up: Details: Vinicio is a 49-year-old male with past medical history of hyperlipidemia, cardiomyopathy, coronary artery disease with INSPECTION MANAGER of the LAD with right to left collaterals who continued to have symptoms and cardiomyopathy in spite of med management. He underwent cardiac catheterization with stenting of the mid LAD on 07/10/2024. He now presents for follow-up. Today he reports he has been doing well since his last visit in July. He says he has been out of Brilinta for the last 2 weeks as he was unable to get a refill from the pharmacy. He continues to have increased energy, improved breathing. He has no chest discomfort at rest or with activity. He walks his dog routinely and is able to go further than he used to be able. No palpitations, lightheadedness, presyncope, syncop. He still is not smoking. No bleeding issues reported. His significant other is present. [facility] Medical History Atherosclerotic cardiovascular disease Surgical History S/P cardiac catheterization History of surgery on lower extremity Family History Father Alzheimer disease Diabetes Mother Diabetes Maternal Grandmother Pacemaker Heart problem Social History Alcohol intake: never Substance Use Type: Marijuana Review of Systems Const All systems reviewed & are unremarkable except as noted in HPI and below ENT Denies dizziness Card Denies chest pain, Denies chest pain at rest, Denies chest pain with activity, Denies rapid heart rate, Denies pedal edema, Denies edema, Denies leg edema, Denies lightheadedness, Denies palpitations, Denies dyspnea, Denies dyspnea on exertion and Denies orthopnea Resp Denies cough, Denies dyspnea and Denies dyspnea on exertion GI Denies hematochezia and Denies change in stool character Musc Denies abnormal gait, Denies limited range of motion, Denies muscle cramps, Denies muscle weakness, Denies numbness, Denies radiating pain into limb, Denies stiffness and Denies tingling Neuro Denies abnormal gait, Denies dizziness, Denies numbness and Denies tingling Endo Denies palpitations Physical Exam Vital Signs: Last Vital Signs Pulse 71 10/29/24 13:39 BP 90/62 10/29/24 13:39 BMI result Body Mass Index 24.8 Const General: cooperative, healthy appearing, comfortable and no acute distress Orientation/consciousness: patient oriented x3 Neck Neck: Yes normal visual inspection Resp Effort & Inspection: normal respiratory effort Auscultation: clear to auscultation bilaterally, no crackles, no rales, no rhonchi and no wheezes Cardio Jugular venous distension: no JVD Rate: regular rate Rhythm: regular rhythm Heart sounds: S1 normal heart sound present, S2 normal heart sound present, no murmurs and no rubs Neuro General: patient oriented x3 Extrem Other: right radial cath site well healed, palpable radial pulse, right hand assessment normal General: Yes normal to inspection Psych Appearance: grossly normal Mental Status: mental status grossly normal Speech and movement: Normal speech and movement present Assessment & Plan Assessment & Plan (1) Atherosclerotic cardiovascular disease: Code(s): I25.10 - Atherosclerotic heart disease of [place] coronary artery without angina pectoris Category: Medical Plan: Known history of CAD with cardiac catheterization 01/05/2023 showing proximal LAD INSPECTION MANAGER severe OM2 disease. Plan was for him to have a viability study however he was not able to complete a cardiac MRI due to claustrophobia. He had been started on med management and did have an improvement of his EF up to 40-45% but continued to have akinesis in the LAD territory. He had an exercise stress test which showed shortness of breath with exertion but no EKG changes noted. On follow-up visit he reported shortness of breath with walking and left-sided chest pressure. He underwent cardiac catheterization on 07/10/2024 and underwent stenting of the proximal to mid LAD. On last visit he reported increased energy and improved breathing. He has been out of Brilinta for the last 2 weeks. It apparently was not on our med list and the pharmacy was not able to get a refill through the electronic system. He has been taking all other meds as directed. Today he reports no anginal sounding symptoms. He quit smoking on the day of the procedure and has not gone back. Echocardiogram was done 10/10/2024 showing EF now 51%, apical and apical septum akinetic, mid anterior septal hypokinetic. Test results reviewed with him in detail. Will have him continue aspirin indefinitely. Continue Brilinta 90 mg b.i.d. uninterrupted for at least 1 year. Continue isosorbide, metoprolol, high-dose atorvastatin. Cardiac rehab had been ordered but it looks like he did not pursue. Cardiology follow-up 3-4 months, sooner if needed. (2) S/P cardiac cath: Comment: 07/10/2024, left main normal, lad mid 100% stenosis, proximal 70% stenosis, left circumflex mid moderate stenosis, om 2 mid 90% stenosis, small-vessel, RCA minimal irregularities Code(s): Z98.890 - Other specified postprocedural states Category: Surgical Plan: As above (3) S/P cardiac catheterization: Comment: 01/10/2023 occlusion of the proximal to mid LAD, right to left collaterals, severe OM 2 disease, 90% stenosis, distal left circumflex 65% stenosis, RCA mid 30% stenosis Code(s): Z98.890 - Other specified postprocedural states Category: Surgical Plan: As above (4) ORTIZ (dyspnea on exertion): Code(s): R06.09 - Other forms of dyspnea Category: Medical Plan: Improved post catheterization and stenting (5) Cardiomyopathy: Code(s): I42.9 - Cardiomyopathy, unspecified Category: Medical Qualifiers: Cardiomyopathy type: ischemic Qualified Code(s): I25.5 - Ischemic cardiomyopathy Plan: Last echo done 01/09/2024 showing EF 50-55%, apical anterior mid anterior septum hypokinetic, apex and apical septum akinetic. Repeat limited echo as above, no significant change. Plan Time spent on chart review, documentation, interview and assessment Medications: New ticagrelor (Brilinta) 90 mg PO BID 180 tabs 2RF Coding Level of Care Code Est Pt Level 4 (32873) Complex EM visit Add On G2211 Diagnoses Atherosclerotic cardiovascular disease I25.10 S/P cardiac cath Z98.890 ORTIZ (dyspnea on exertion) R06.09 Ischemic cardiomyopathy I25.5 Cardiomyopathy type: ischemic Time Spent (min) 28
--- OUTSIDE RECORDS SUMMARY | 2024-10-29 18:04 | XMS_ITS | Data Portability ---
Author Organization [facility], Allergy Address [address] [place] [address] [place] [id number] Care Team Providers Care Lead Radiation Therapist Name Role Phone NAME, MARY Referring Provider Assessment Encounter Date Assessment Date Assessment LastModified by Organization Details LastModified Time 06/08/2024 06/08/2024 Physical examination demonstrates an enlarged slightly firm right submandibular gland. He has clear saliva in the oral cavity with no palpable obstructive stones within the duct. Discussed conservative observation at this time given his absence of significant symptoms. Alternative of surgery to remove the gland was also briefly discussed but not recommended. There are risks of surgery including injury to nearby structures that control movement of the lip, infection, scar. Patient is in agreement to observe and receive symptomatic care with warm compress, gentle massage and good hydration as well as antibiotics if he should have an acute flareup dplosky Not available 06/08/2024 14:58:29 Plan of Treatment Reminders Order Date Submit Date Provider Last Modified By Organization Details Last Modified Time Details Appointments None record ed. Lab None record ed. Referral None record ed. Procedures None record ed. Surgeries None record ed. Imaging None record ed. Medication Orders None record ed. Patient TargetsNo targets recorded. Patient InstructionsNo instructions recorded. Reason for Referral None Reported. Problems Name Problem SNOMED Code Status Onset Date Resolution Date Notes Provider Name and Address Organization Details Recorded Time Submandibular sialolithiasis 413357007 Active 2023 ANDREA KONG MD [address] [facility] [address], [place], [id number] [facility] [place] - [facility] 10:01:32 Problem Notes None recorded. Medical Equipment None Reported. Allergies No known drug allergies Medications Name Sig Start Date Stop Date Status Note LastModified by Organization Details LastModified Time atorvastati n 80 mg tablet TAKE 1 TABLET BY MOUTH DAILY active Not Available Not Available No t Available nicotine 14 mg/24 hr daily transdermal patch APPLY ONE PATCH EVERY DAY active Not Available Not Available No t Available FreeStyle Lancets 28 gauge USE DIRECTED ONCE DAILY FOR TYPE 2 DIABETES active Not Available Not Available No t Available SPS (with sorbitol) 15 gram-20 gram/60 mL oral suspension SHAKE LIQUID AND TAKE 60 ML BY MOUTH DAILY FOR 1 DAY active Not Available Not Available No t Available aspirin 81 mg tablet,galina yed release TAKE 1 TABLET BY MOUTH DAILY active Not Available Not Available No t Available acetaminoph en 500 mg tablet TAKE 2 TABLETS BY MOUTH EVERY 4 TO 6 HOURS HOURS FOR 90 DAYS NEEDED FOR BACK PAIN NOT TO EXCEED 3000 MG PER DAY active Not Available Not Available No t Available cephalexin 500 mg capsule 06/08 completed Not Available Not Available Not Available lidocaine 5 % topical patch APPLY 2 PATCHES TOPICALLY TO THE SKIN DAILY REMOVE PATCHES AFTER 12 HOURS active Not Available Not Available No t Available metoprolol succinate ER 25 mg tablet,exte nded release 24 hr TAKE 1 TABLET BY MOUTH DAILY active Not Available Not Available No t Available metformin ER 500 mg tablet,exte nded release 24 hr TAKE 2 TABLETS BY MOUTH TWICE DAILY active Not Available Not Available No t Available lisinopril 2.5 mg tablet TAKE 1 TABLET BY MOUTH DAILY active Not Available Not Available No t Available amoxicillin 875 mg-potassiu m clavulanate 125 mg tablet TAKE 1 TABLET BY MOUTH TWICE DAILY FOR 7 DAYS 06/08 completed Not Available Not Available Not Available valsartan 40 mg tablet TAKE 1 TABLET BY MOUTH DAILY active Not Available Not Available No t Available duloxetine 30 mg capsule,del ayed release TAKE 1 CAPSULE BY MOUTH DAILY TAKE FOR TREATMENT OF DEPRESSIO N AND PAIN active Not Available Not Available No t Available FreeStyle Lite Meter kit DIRECTED TO TEST BLOOD SUGAR DAILY active Not Available Not Available No t Available FreeStyle Lite Strips DIRECTED TO TEST BLOOD SUGAR DAILY active Not Available Not Available No t Available dapaglifloz in propanediol 10 mg tablet TAKE 1 TABLET BY MOUTH DAILY active Not Available Not Available No t Available Vitals Date Recorded Body height Body weight Provider Name and Address Organization Details Last Updated DateTime 06/08/2024 179.07 cm 57969.82 g Judy Perez [place] [facility] 06/08/2024 14:15:56 Social History None recorded. Functional Status None recorded. Mental Status None recorded. Family History Nothing Reported. Medical History Condition Response Diabetes Y Sleep Disorder Y Hyperlipidemia Y Hypertension Y Depression Y Kidney Disease Y Past Encounters Encounter ID Performer Location Encounter Start Date Encounter Closed Date Diagnosis/Indication Diagnosis SNOMED-CT Code Diagnosis ICD10 Code Diagnosis Note [id number] ANDREA KONG MD [facility] [address] [place] [address] 06/08/2024 14:08:45 06/08/2024 14:58:13 Submandibular sialolithiasis 099441031 K11.5 right sided submandibu lar stones measure up to 6mm Health Concerns Section Related Observation LastModified by Organization Detai ls LastModified Time None Recorded Concern Status LastModified by Organization Details LastModified Time None Recorded Advance Directives Directive None Recorded Payers Encounter Date Sequence Insurance Name Policy Number Policy Petty Covered Member ID Petty Member ID Guarantor Name 06/08/2024 1 [place]: [facility] Gennaro Paulino [id number] Vinicio Paulino Notes Date Note Type Note Provider Name and Address Organization Details Recorded Time text/html Right submandibular sialolithiasisonset about March 2024initial swelled, treated with abx with improvement in [place] does not complain of any paineating well 03/23/2024 [place] gland. Several calculi measuring up to 6 mm along the medial border with ductal irritation.Treated with Augmentin and hydration Past medical history had LA in 2022, diabetes Tobacco + ANDREA KONG MD [address] [facility],[place] [address], [place], [phone], [facility] - [facility] 06/08/2024 14:58:43
== END 2024-10-29 14:08 | disposition home or self-care (01) ==
PROVIDERS: PCP Internal Medicine Geriatric Medicine; Visit Provider Nurse Practitioner Family
DX: I25.10 Atherosclerotic heart disease of native coronary artery without angina pectoris (principal); Z98.890 Other specified postprocedural states; R06.09 Other forms of dyspnea; I25.5 Ischemic cardiomyopathy
CPT/HCPCS: 99214

== ENCOUNTER → 2024-10-29 13:22 | Outpatient (BNVA) | payer MEDICAID, SELFPAY | PROVIDERS: PCP Internal Medicine Geriatric Medicine; Visit Provider Nurse Practitioner Family | DX: I25.10 Atherosclerotic heart disease of native coronary artery without angina pectoris (principal); I25.5 Ischemic cardiomyopathy; R06.09 Other forms of dyspnea; Z98.890 Other specified postprocedural states | CPT/HCPCS: 99212 ==

== ENCOUNTER 2025-02-08 13:19 | Outpatient (AMB) | payer MEDICAID, SELFPAY ==
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
--- OUTSIDE RECORDS SUMMARY | 2025-02-08 13:21 | XMS_ITS | Data Portability ---
Author Organization [place] - [facility], [facility] Address [address] [place] [address] [place] [id number] Care Team Providers Care Electrical Solderer Name Role Phone NAME, MARY Referring Provider [...] Address Organization Details Recorded Time Submandibular sialolithiasis [id number] Active 2023 ANDREA KONG MD [address] [facility] [address], [place], [address] [facility] [place] [facility] 10:01:32 Problem Notes None recorded. Medical Equipment [...] Details Last Updated DateTime 06/08/2024 179.07 cm 49160.82 g Judy Perez [place] [facility] 06/08/2024 14:15:56 Social History None recorded. Functional Status None recorded. Mental Status None recorded. Family History Nothing Reported. Medical History Condition Response Diabetes Y Sleep Disorder Y Hyperlipidemia Y Hypertension Y Depression Y Kidney Disease Y Past Encounters Encounter ID Performer Location Encounter Start Date Encounter Closed Date Diagnosis/Indication Diagnosis SNOMED-CT Code Diagnosis ICD10 Code Diagnosis Note [id number] KONG MD [facility] [address] [place] [address] 06/08/2024 14:08:45 06/08/2024 14:58:13 Submandibular sialolithiasis 185074586 K11.5 right sided submandibu lar stones measure up to 6mm Health Concerns Section Related Observation LastModified by Organization Detai ls LastModified Time None Recorded Concern Status LastModified by Organization Details LastModified Time None Recorded Advance Directives Directive None Recorded Payers Insurance Date Sequence Insurance Name Policy Number Policy Petty Covered Member ID Petty Member ID Guarantor Name 06/08/2024 1 [place] [facility] Gennaro [place] [id number] Viniciojoseph Paulino Notes Date Note Type Note Provider Name and Address Organization Details Recorded Time text/html Right submandibular sialolithiasisonset about March 2024initial swelled, treated with abx with improvement in [place] does not complain of any paineating well 03/23/2024 CT [place] sub[place]ibular gland. Several calculi measuring up to 6 mm along the medial border with ductal irritation.Treated with Augmentin and hydration Past medical history had CO in 2022, diabetes Tobacco + ANDREA KONG MD [address] [facility],[place] [address], [place], [address], [facility] - [facility] 06/08/2024 14:58:43
--- NOTE | 2025-02-08 13:27 | A.OFFVIS_ITS ---
Vital Signs 02/08/25 13:28 Height 5 ft 10 in Weight 173 lb 4.533 oz BMI 24.9 BP 120/72 Blood Pressure Location Lt brachial Position Sitting Pulse 67 Pulse Source Pulse Oximeter Intake Visit Reasons: 4mon f/u Tester Wafer Substrate Required: No Allergies No Known Allergies Allergy (Verified 02/08/25 13:32) Medication List - Last Reconciled 02/08/25 by Kiara Garnett NP-C aspirin 81 mg PO DAILY atorvastatin 80 mg PO DAILY dapagliflozin propanediol (Farxiga) 10 mg PO DAILY duloxetine 30 mg PO DAILY isosorbide mononitrate ER 30 mg PO DAILY metformin 500 mg PO BID metoprolol succinate ER 25 mg PO DAILY pioglitazone 15 mg PO DAILY ticagrelor (Brilinta) 90 mg PO BID HPI HPI 4mon f/u: Details: Vinicio is a 49-year-old male with past medical history of hyperlipidemia, cardiomyopathy, coronary artery disease with WELDER METAL FAB of the LAD with right to left collaterals who continued to have symptoms and cardiomyopathy in spite of med management. He underwent cardiac catheterization with stenting of the mid LAD on 07/10/2024 and last echocardiogram shows EF 51%. He now presents for follow- up. Today he reports he has been doing well since his last visit in October. He denies any cardiac symptoms. He describes a 1 episode of sharp pain below his right breast that was worse with movement of his body. He is also experiencing issues with low back pain, also worse with movement. No chest discomfort with exertion. He has had back discomfort that is worse with movement. No shortness of breath, PND, orthopnea or edema. No palpitations, lightheadedness, presyncope, syncope. He reports good energy and has been able to go for walks and ride a bike without some. He is taking all meds as directed. Continue to not smoke. is present. [facility] Medical History Atherosclerotic cardiovascular disease Surgical History S/P cardiac catheterization History of surgery on lower extremity Family History Father Alzheimer disease Diabetes Mother Diabetes Maternal Grandmother Pacemaker Heart problem Social History Alcohol intake: never Substance Use Type: Marijuana Review of Systems Const All systems reviewed & are unremarkable except as noted in HPI and below ENT Denies dizziness Card Denies chest pain, Denies chest pain at rest, Denies chest pain with activity, Denies rapid heart rate, Denies pedal edema, Denies edema, Denies leg edema, Denies lightheadedness, Denies palpitations, Denies dyspnea, Denies dyspnea on exertion and Denies orthopnea Resp Denies cough, Denies dyspnea and Denies dyspnea on exertion GI Denies hematochezia and Denies change in stool character Musc Denies abnormal gait, Denies limited range of motion, Denies muscle cramps, Denies muscle weakness, Denies numbness, Denies radiating pain into limb, Denies stiffness and Denies tingling Neuro Denies abnormal gait, Denies dizziness, Denies numbness and Denies tingling Endo Denies palpitations Physical Exam Vital Signs: Last Vital Signs Pulse 67 02/08/25 13:28 BP 120/72 02/08/25 13:28 BMI result Body Mass Index 24.9 Const General: cooperative, healthy appearing, comfortable and no acute distress Orientation/consciousness: patient oriented x3 Neck Neck: Yes normal visual inspection and Yes no JVD Resp Effort & Inspection: normal respiratory effort Auscultation: clear to auscultation bilaterally, no crackles, no rales, no rhonchi and no wheezes Cardio Rate: regular rate Rhythm: regular rhythm Heart sounds: S1 normal heart sound present, S2 normal heart sound present, no gallops, no murmurs and no rubs Neuro General: patient oriented x3 Extrem General: Yes normal to inspection, No no pedal edema and No calf tenderness Psych Appearance: grossly normal Mental Status: mental status grossly normal Speech and movement: Normal speech and movement present Assessment & Plan Assessment & Plan (1) Atherosclerotic cardiovascular disease: Code(s): I25.10 - Atherosclerotic heart disease of [place] coronary artery without angina pectoris Category: Medical Plan: Known history of CAD with cardiac catheterization 01/05/2023 showing proximal LAD WELDER METAL FAB severe OM2 disease. Plan was for him to have a viability study however he was not able to complete a cardiac MRI due to claustrophobia. He had been started on med management and did have an improvement of his EF up to 40-45% but continued to have akinesis in the LAD territory. He underwent cardiac catheterization on 07/10/2024 and underwent stenting of the proximal to mid LAD. On follow-up he reported increased energy and improved breathing. Last echocardiogram was done 10/10/2024 showing EF now 51%, apical and apical septum akinetic, mid anterior septal hypokinetic. Continue aspirin indefinitely. Continue Brilinta 90 mg b.i.d. uninterrupted for at least 1 year post stent. Continue isosorbide, metoprolol. Continue high-dose atorvastatin with ideal LDL goal less than 70. Labs done 06/18/2024 shows LDL 68. Cardiac rehab previously ordered and he declined. Signs and symptoms of angina reviewed. Cardiology follow-up 6 months, sooner if needed. (2) S/P cardiac cath: Comment: 07/10/2024, left main normal, lad mid 100% stenosis, proximal 70% stenosis, left circumflex mid moderate stenosis, om 2 mid 90% stenosis, small-vessel, RCA minimal irregularities Code(s): Z98.890 - Other specified postprocedural states Category: Surgical Plan: As above (3) S/P cardiac catheterization: Comment: 01/10/2023 occlusion of the proximal to mid LAD, right to left collaterals, severe OM 2 disease, 90% stenosis, distal left circumflex 65% stenosis, RCA mid 30% stenosis Code(s): Z98.890 - Other specified postprocedural states Category: Surgical Plan: As above (4) ORTIZ (dyspnea on exertion): Code(s): R06.09 - Other forms of dyspnea Category: Medical Plan: Improved post catheterization and stenting (5) Cardiomyopathy: Code(s): I42.9 - Cardiomyopathy, unspecified Category: Medical Qualifiers: Cardiomyopathy type: ischemic Qualified Code(s): I25.5 - Ischemic cardiomyopathy Plan: Prior echo with EF 45-50%. Most recent echo 10/10/2024 with EF 51%, apex and apical septum akinetic, mid anterior septal segment hypokinetic. No change from 01/09/24. No signs of heart failure on examination. He is on metoprolol XL for neurohormonal modulation. He does have CKD, Paolo/Arb avoided. He is not requiring diuretic therapy. Plan Time spent on chart review, documentation, interview and assessment I discussed with the patient that his recent chest discomfort is musculoskeletal in nature, likely due to chest wall or postural issues, rather than cardiac origin, given its brief recurrence while moving and its absence of symptoms during exertion. I emphasized the importance of maintaining his current medication regimen to support heart health and prevent complications. We reviewed that the stent placed in July is functioning well based on activity tolerance. The patient understands and consents to continue current treatment, with plans for follow-up in six months unless symptoms persist or worsen. The patient was advised to contact medical services if severe or continuous symptoms occur during physical activities. Patient was informed and verbally consented to the use of an ambient scribe for clinic note documentation during this visit. Patient Instructions: - Continue taking prescribed medications: aspirin, Brilinta, atovastatin, isosorbide, and metoprolol. - Monitor for any chest pain during physical activities. - Call emergency services if chest pain persists or is associated with shortness of breath. - Be active and maintain physical exercise with walking and cycling. - Follow up in six months or if new symptoms arise. - Labs are ordered by your primary care physician, please obtain in the next few weeks Coding Level of Care Code Est Pt Level 4 (05819) Complex EM visit Add On G2211 Diagnoses Atherosclerotic cardiovascular disease I25.10 S/P cardiac cath Z98.890 ORTIZ (dyspnea on exertion) R06.09 Ischemic cardiomyopathy I25.5 Cardiomyopathy type: ischemic Time Spent (min) 28
[2025-02-08 13:28] VITALS: BP 120/72; PULSE 67; BMI 24.9
== END 2025-02-08 13:59 | disposition home or self-care (01) ==
LOC: HO.HCS 13:19
PROVIDERS: PCP Internal Medicine Geriatric Medicine; Visit Provider Nurse Practitioner Family
DX: I25.10 Atherosclerotic heart disease of native coronary artery without angina pectoris (principal); Z98.890 Other specified postprocedural states; R06.09 Other forms of dyspnea; I25.5 Ischemic cardiomyopathy
CPT/HCPCS: 99214

== ENCOUNTER → 2025-02-08 13:19 | Outpatient (BNVA) | payer MEDICAID, SELFPAY | PROVIDERS: PCP Internal Medicine Geriatric Medicine; Visit Provider Nurse Practitioner Family | DX: I42.9 Cardiomyopathy, unspecified (principal); I25.10 Atherosclerotic heart disease of native coronary artery without angina pectoris; R06.09 Other forms of dyspnea; I25.5 Ischemic cardiomyopathy; Z98.890 Other specified postprocedural states | CPT/HCPCS: 99212 ==

== ENCOUNTER 2025-04-08 13:50 | Outpatient (AMB) | payer MEDICAID, SELFPAY ==
[2025-04-08 13:51] VITALS: BP 112/66; PULSE 64; BMI 25.0
--- NOTE | 2025-04-08 13:51 | MHC.OFFVIS ---
Vital Signs 04/08/25 13:51 Height 5 ft 10 in Weight 174 lb 2.643 oz BMI 25.0 BP 112/66 Blood Pressure Location Lt brachial Position Sitting Pulse 64 Intake Visit Reasons: diabetic gastroparesis Intake Note: Vinicio presents in the office as a new patient for diabetic gastroparesis. CC: Lots of pains in the stomach - every morning he wakes up and has to vomit. No iregular BM. No so much of pains in the stomach more so discomfort and the feeling that he has to throw up. Time Study Analyst Required: No Allergies No Known Allergies Allergy (Verified 04/08/25 13:51) HPI Comments Details: 49 y.o M with PMH of T2DM, ASCVD with hx of PCI 07/2024 on DAPT, who was referred to our office for question of gastroparesis. Patient is accompanied by his significant other. He reports that at least 2-3 times in the week, he wakes up in the morning feeling very queasy, nauseous, sometimes throws up coffee-grounds. He notices nausea and vomiting even when he does not have dinner the previous night. This coincides with his poorly controlled DM. Reports a1c >9%. reports unless she gives him the meds in his hands, he often forgets to take them. Does not have a glucometer. Is not aware of dietary modification for DM. Labs reviewed, had mild anemia last year. [facility] Medical History Atherosclerotic cardiovascular disease Surgical History S/P cardiac catheterization History of surgery on lower extremity Family History Father Alzheimer disease Diabetes Mother Diabetes Maternal Grandmother Pacemaker Heart problem Social History Alcohol intake: never Substance Use Type: Marijuana Review of Systems Const All systems reviewed & are unremarkable except as noted in HPI and below Physical Exam Vital Signs: Last Vital Signs Pulse 64 04/08/25 13:51 BP 112/66 04/08/25 13:51 BMI result Body Mass Index 25.0 No apparent distress Nonicteric Abdomen soft, nondistended Alert and oriented x3, normal gait Assessment & Plan Assessment & Plan (1) Atherosclerotic cardiovascular disease: Code(s): I25.10 - Atherosclerotic heart disease of [place] coronary artery without angina pectoris Category: Medical (2) Diabetes: Code(s): E11.9 - Type 2 diabetes mellitus without complications Category: Medical (3) Nausea & vomiting: Code(s): R11.2 - Nausea with vomiting, unspecified Category: Medical (4) Anemia: Code(s): D64.9 - Anemia, unspecified Category: Medical Plan 1. N/V Reviewed with the pt that hyperglycemia in itself also causes delayed gastric emptying even without gastroparesis. GES will have little diagnostic accuracy at this time as it should be done with BG <180 mg/dl. He was advised to contact PCP for DM management Symptom log for N/V Omeprazole 20 empirically for possible gastritis/duodenitis/esophagitis 2. Anemia Noted on labs from last year. Will get updated labs sai since pt reports 1-2 instances of seeing coffee grounds in emesis. Labs to be done If anemia persistent or worse, will need colo alongside an egd for evaluation. Ideally OFF dapt (mikhail to cont till 07/2025) Follow up 2 months Orders: Orders Complete Blood Count no Diff Today D64.9 - Anemia, unspecified, E11.9 - Type 2 diabetes mellitus without complications, R11.2 - Nausea with vomiting, unspecified IRON PROFILE Today D64.9 - Anemia, unspecified, E11.9 - Type 2 diabetes mellitus without complications, R11.2 - Nausea with vomiting, unspecified Hemoglobin A1c Today D64.9 - Anemia, unspecified, E11.9 - Type 2 diabetes mellitus without complications, R11.2 - Nausea with vomiting, unspecified Medications: New omeprazole 20 mg PO DAILY 90 caps 1RF Coding Level of Care Code New Pt Level 4 (91276) Diagnoses Atherosclerotic cardiovascular disease I25.10 Diabetes E11.9 Nausea & vomiting R11.2 Anemia D64.9
--- OUTSIDE RECORDS SUMMARY | 2025-04-08 14:16 | XMS_ITS | Data Portability ---
Author Organization [place] - [facility], Allergy Address [address] [place] [id number] Care Team Providers Care Field Director Name Role Phone NAME, MARY Referring Provider [phone] Assessment Encounter Date Assessment Date Assessment LastModified [...] Address Organization Details Recorded Time Submandibular sialolithiasis [id number] Active 2023 ANDREA KONG MD [address], [address] [place] [facility] [place] Details Last Updated DateTime 06/08/2024 179.07 cm 33652.82 g Judy Perez [place] - [facility] 06/08/2024 14:15:56 Social History None recorded. Functional Status None recorded. Mental Status None recorded. Family History Nothing Reported. Medical History Condition Response Diabetes Y Sleep Disorder Y Hyperlipidemia Y Hypertension Y Depression Y Kidney Disease Y Past Encounters Encounter ID Performer Location Encounter Start Date Encounter Closed Date Diagnosis/Indication Diagnosis SNOMED-CT Code Diagnosis ICD10 Code Diagnosis Note [id number] ANDREA KONG MD [facility] [address] [place] [address] 06/08/2024 14:08:45 06/08/2024 14:58:13 Submandibular sialolithiasis 321986903 K11.5 right sided submandibu lar stones measure up to 6mm Health Concerns Section Related Observation LastModified by Organization Detai ls LastModified Time None Recorded Concern Status LastModified by Organization Details LastModified Time None Recorded Advance Directives Directive None Recorded Payers Insurance Date Sequence Insurance Name Policy Number Policy Petty Covered Member ID Petty Member ID Guarantor Name 06/08/2024 1 [place]: [facility] [id number] [facility] Notes Date Note Type Note Provider Name and Address Organization Details Recorded Time 4 text/html Right submandibular sialolithiasisonset about March 2024initial swelled, treated with abx with improvement in [place] does not complain of any paineating well 03/23/2024 CT [place]ibular gland. Several calculi measuring up to 6 mm along the medial border with ductal irritation.Treated with Augmentin and hydration Past medical history had MS in 2022, diabetes Tobacco + ANDREA KONG MD 100 [facility], [place], [address], [facility] - [facility] 06/08/2024 14:58:43
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
== END 2025-04-08 14:31 | disposition home or self-care (01) ==
LOC: HO.HGI 13:50
PROVIDERS: PCP Internal Medicine Geriatric Medicine; Visit Provider Internal Medicine
DX: I25.10 Atherosclerotic heart disease of native coronary artery without angina pectoris (principal); E11.9 Type 2 diabetes mellitus without complications; R11.2 Nausea with vomiting, unspecified; D64.9 Anemia, unspecified
CPT/HCPCS: 99204

== ENCOUNTER → 2025-04-08 13:50 | Outpatient (BNVA) | payer MEDICAID, SELFPAY | PROVIDERS: PCP Internal Medicine Geriatric Medicine; Visit Provider Internal Medicine | DX: E11.43 Type 2 diabetes mellitus with diabetic autonomic (poly)neuropathy (principal); R11.2 Nausea with vomiting, unspecified; D64.9 Anemia, unspecified; I25.10 Atherosclerotic heart disease of native coronary artery without angina pectoris; I10 Essential (primary) hypertension; Z98.61 Coronary angioplasty status | CPT/HCPCS: 99202 ==